=== PATIENT | male | born 1965 | race Caucasian/White ===

== ENCOUNTER 2016-09-27 17:16 | Observation (INO) | payer OTHER ==
[2016-09-27 17:27] VITALS: BMI 27.4
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
[2016-09-27 17:52] LABS: BASOPHILS % (AUTO) 0.2 % (0.2-1.0); EOSINOPHILS # (AUTO) 0.1 x10^3/uL (0.0-0.2); EOSINOPHILS % (AUTO) 1.6 % (0.9-2.9); HEMATOCRIT 38.6 % (42.0-54.0); HEMOGLOBIN 13.4 g/dL (13.5-18.0); LYMPHOCYTES # (AUTO) 1.9 X10^3/uL (1.3-2.9); LYMPHOCYTES % (AUTO) 26.5 % (21.0-51.0); MEAN CORPUSCULAR HEMOGLOBIN 33.6 pg (27.0-34.0); MEAN CORPUSCULAR HGB CONC 34.8 g/dL (33.0-35.0); MEAN CORPUSCULAR VOLUME 96.6 fL (80.0-100.0); MEAN PLATELET VOLUME 6.7 fL (7.4-11.0); MONOCYTES # (AUTO) 0.9 x10^3/uL (0.3-0.8); MONOCYTES % (AUTO) 12.6 % (0.0-13.0); NEUTROPHILS # (AUTO) 4.2 x10^3/uL (2.2-4.8); NEUTROPHILS % (AUTO) 59.1 % (42.0-75.0); PLATELET COUNT 156 X10^3/uL (150.0-450.0); RED CELL DISTRIBUTION WIDTH 12.6 % (11.6-16.5); WHITE BLOOD COUNT 7.1 X10^3/uL (3.6-10.0)
[2016-09-27 18:05] LABS: BLOOD UREA NITROGEN 6 mg/dL (7-18); CALCIUM 8.2 mg/dL (8.5-10.1); CARBON DIOXIDE 25.6 mmol/L (21-32); CHLORIDE 91 mmol/L (98-107); CREATININE 0.74 mg/dL (0.70-1.30); GLUCOSE 95 mg/dL (65-99); SODIUM 130 mmol/L (136-145); TROPONIN I < 0.02 ng/mL (0-1.5); eGFR BLACK RACES > 60 (>60); eGFR NON BLACK RACES > 60 (>60)
[2016-09-27 18:09] LABS: ALANINE AMINOTRANSFERASE 26 Units/L (12-78); ALBUMIN 4.2 g/dL (3.4-5.0); ALKALINE PHOSPHATASE 110 Units/L (46-116); ASPARTATE AMINO TRANSFERASE 26 Units/L (15-37); CKMB % 1.7 % (<4); CREATINE KINASE 152 Units/L (39-308); CREATINE KINASE MB 2.6 ng/mL (0-4.0); TOTAL PROTEIN 8.4 g/dL (6.4-8.2)
--- NOTE | 2016-09-27 18:16 | RAD ---
HISTORY: Hypoxia and cough Study: PA and lateral chest Comparison: July 22, 2016 Findings: The trachea is midline. The cardiac silhouette is normal. There is a endo coil in the proximal desc ending thoracic aorta.. The lungs are clear without focal infiltrate or effusion. The bony thorax shows plates and screws around the distal left clavicle for old fracture.. IMPRESSION: 1. No acute cardiopulmonary disease. Reported By:
[2016-09-27 18:24] LABS: D DIMER 501 ng/mL (0-400)
[2016-09-27] MEDS ORDERED: NS 500 ML IV 500 ML IV ONE ×2 (20:29→20:34)
[2016-09-27] MEDS ORDERED: NS 100 ML IV 100 ML IV ONE (20:37)
--- NOTE | 2016-09-27 21:38 | CT ---
CTA chest with contrast per pulmonary embolism protocol Indication: Shortness of breath Comparison: 05/05/2013 Technique: Multiple axial images of the chest were obtained from the thoracic inlet to the upper abd omen after the administration of IV contrast.Coronal and Sagittal MIP images were also provided. Radiation dose reduction techniques were performed utilizing adjustment for MA/kVP based on patient body size. Findings: No central or segmental pulmonary arterial filling defect is identified. There is normal caliber of the pulmonary artery without CT evidence or right heart strain. The heart size is within normal limits without pericardial effusion. The pulmonary artery calcified atherosclerotic disease is noted. The a stent is noted within the descending thoracic aorta . There are borderline enlarged prevascular, AP would and pretracheal lymph nodes. There is also a mildly en larged right hilar lymph node on axial image 52. There is diffuse peribronchial thickening with peribronchial consolidation and ground-glass opacitie s within the medial right middle lobe, right lower lobe, lingula and left lower lobe consistent mult i focal infectious infiltrates in the setting of bronchitis. Central airways remain clear. No pleura l effusion or pneumothorax. Visualized upper abdomen is unremarkable. There are multiple healed fracture deformities involving t he left sided ribs none of which appear acute. IMPRESSION: 1. No PTE identified. 2. Bronchitis with multi focal bronchopneumonia. 3. Borderline enlarged mediastinal and mildly enlarged right hilar lymph nodes are likely reactive t o the above described acute infectious process, correlation with followup chest CT can be performed as clinically warranted. 4. Multiple chronic fracture deformities of the left-sided ribs. Reported By:
[2016-09-27] MEDS ORDERED: ROCEPHIN VIAL 1 GM 1 GM in NS 50 ML IV + SPIKE MINIBAG* 50 ML IV ONE (21:50)
[2016-09-27] MEDS ORDERED: ROCEPHIN 1 GM IV PREMIX * OUT OF STOCK 50 ML IV ONE (21:57)
[2016-09-27] MEDS ORDERED: TUSSIONEX PENNKINETIC SUSP PO PRN (22:49)
[2016-09-27] MEDS ORDERED: SOLU-MEDROL 125 MG VIAL IVP ONE (22:51)
[2016-09-27] MEDS ORDERED: NS 1/2 1000 ML IV 1,000 ML IV SCH (23:00)
[2016-09-27] MEDS ORDERED: TYLENOL 325 MG TAB PO ONE ×2 (23:02→23:03)
[2016-09-27] MEDS: LEVAQUIN PREMIX IV 750 MG 750 MG/150 ML BAG IV SCH (23:11)
[2016-09-27] MEDS ORDERED: SOLU-MEDROL 125 MG VIAL ONE (23:15)
[2016-09-27] MEDS ORDERED: LEVAQUIN PREMIX IV 750 MG 750 MG/150 ML BAG IV ONE (23:15)
[2016-09-27] MEDS ORDERED: SALINE 3% 15 ML NEB TX ONE (23:33)
[2016-09-27] MEDS ORDERED: NORVASC TAB 5 MG PO SCH (23:45)
[2016-09-28] MEDS ORDERED: SALINE 3% 15 ML NEB TX NEB ONE
[2016-09-28] MEDS: DUONEB 0.5 MG/3 MG NEB SCH ×6 (00:42→21:16)
[2016-09-28] MEDS: NS 1000 ML 1,000 ML IV SCH (01:00)
[2016-09-28 06:19] LABS: BASOPHILS % (AUTO) 0.9 % (0.2-1.0); EOSINOPHILS % (AUTO) 0.1 % (0.9-2.9); HEMATOCRIT 37.3 % (42.0-54.0); HEMOGLOBIN 13.1 g/dL (13.5-18.0); LYMPHOCYTES # (AUTO) 0.7 X10^3/uL (1.3-2.9); LYMPHOCYTES % (AUTO) 13.7 % (21.0-51.0); MEAN CORPUSCULAR HEMOGLOBIN 33.6 pg (27.0-34.0); MEAN CORPUSCULAR VOLUME 95.9 fL (80.0-100.0); MEAN PLATELET VOLUME 7.2 fL (7.4-11.0); MONOCYTES # (AUTO) 0.1 x10^3/uL (0.3-0.8); MONOCYTES % (AUTO) 1.9 % (0.0-13.0); NEUTROPHILS # (AUTO) 4.4 x10^3/uL (2.2-4.8); NEUTROPHILS % (AUTO) 83.4 % (42.0-75.0); PLATELET COUNT 119 X10^3/uL (150.0-450.0); RED BLOOD COUNT 3.89 X10^6/uL (4.7-6.0); RED CELL DISTRIBUTION WIDTH 12.7 % (11.6-16.5); WHITE BLOOD COUNT 5.2 X10^3/uL (3.6-10.0)
[2016-09-28 06:24] LABS: ALANINE AMINOTRANSFERASE 21 Units/L (12-78); ALBUMIN 3.7 g/dL (3.4-5.0); ALKALINE PHOSPHATASE 99 Units/L (46-116); ASPARTATE AMINO TRANSFERASE 19 Units/L (15-37); BLOOD UREA NITROGEN 5 mg/dL (7-18); CALCIUM 8.5 mg/dL (8.5-10.1); CARBON DIOXIDE 23.7 mmol/L (21-32); CHLORIDE 100 mmol/L (98-107); COR NA(FOR HYPERGLY) 138 mmol/L (136-145); CREATININE 0.79 mg/dL (0.70-1.30); GLUCOSE 144 mg/dL (65-99); SODIUM 137 mmol/L (136-145); TOTAL PROTEIN 7.7 g/dL (6.4-8.2); eGFR BLACK RACES > 60 (>60); eGFR NON BLACK RACES > 60 (>60)
[2016-09-28] MEDS ORDERED: [UNRECOGNIZED DRUG - OTHER] PO PRN (08:29)
[2016-09-28] MEDS ORDERED: PATIENT'S HOME MEDICATION RESPIRATORY (Alprazolam [Xanax 1 Mg] 1 MG) PO SCH (09:00)
[2016-09-28] MEDS: SOLU-MEDROL 40 MG VIAL IVP SCH ×3 (09:14→21:20)
[2016-09-28] MEDS: ROBITUSSIN DM PO SCH ×4 (09:15→21:08)
[2016-09-28] MEDS: XANAX PO SCH ×2 (10:41→21:05)
[2016-09-28] MEDS: PERCOCET TAB 5/325 MG PO PRN ×2 (16:31→21:06)
[2016-09-28] MEDS ORDERED: [UNRECOGNIZED DRUG - OTHER] PO SCH (21:00)
[2016-09-28] MEDS ORDERED: INDERAL TAB 10 MG PO SCH ×2 (21:00)
[2016-09-28] MEDS ORDERED: ROCEPHIN VIAL 1 GM 1 GM in NS 50 ML IV + SPIKE MINIBAG* 50 ML IV SCH (21:00)
[2016-09-28] MEDS ORDERED: [UNRECOGNIZED DRUG - OTHER] PO SCH (21:00)
[2016-09-28] MEDS ORDERED: PREVACID PO SCH (21:00)
[2016-09-28] MEDS ORDERED: NORVASC TAB 5 MG PO SCH ×2 (21:00)
[2016-09-28] MEDS: LEVAQUIN PREMIX IV 750 MG 750 MG/150 ML BAG IV SCH (21:08)
[2016-09-29] MEDS: PERCOCET TAB 5/325 MG PO PRN
[2016-09-29] MEDS: DUONEB 0.5 MG/3 MG NEB SCH ×3 (00:44→08:29)
[2016-09-29] MEDS: NS 1000 ML 1,000 ML IV SCH ×2 (01:29→06:20)
[2016-09-29 06:12] LABS: ALANINE AMINOTRANSFERASE 21 Units/L (12-78); ALBUMIN 3.6 g/dL (3.4-5.0); ALKALINE PHOSPHATASE 93 Units/L (46-116); ASPARTATE AMINO TRANSFERASE 14 Units/L (15-37); BLOOD UREA NITROGEN 7 mg/dL (7-18); CALCIUM 9.2 mg/dL (8.5-10.1); CARBON DIOXIDE 27.1 mmol/L (21-32); CHLORIDE 103 mmol/L (98-107); COR NA(FOR HYPERGLY) 142 mmol/L (136-145); CREATININE 0.66 mg/dL (0.70-1.30); GLUCOSE 179 mg/dL (65-99); SODIUM 140 mmol/L (136-145); eGFR BLACK RACES > 60 (>60); eGFR NON BLACK RACES > 60 (>60)
[2016-09-29] MEDS: SOLU-MEDROL 40 MG VIAL IVP SCH (06:16)
[2016-09-29 06:17] LABS: BASOPHILS % (AUTO) 0 % (0.2-1.0); HEMATOCRIT 37.4 % (42.0-54.0); LYMPHOCYTES # (AUTO) 0.5 X10^3/uL (1.3-2.9); LYMPHOCYTES % (AUTO) 8.2 % (21.0-51.0); MEAN CORPUSCULAR HEMOGLOBIN 33.9 pg (27.0-34.0); MEAN CORPUSCULAR HGB CONC 34.9 g/dL (33.0-35.0); MEAN CORPUSCULAR VOLUME 97.2 fL (80.0-100.0); MEAN PLATELET VOLUME 7.6 fL (7.4-11.0); MONOCYTES # (AUTO) 0.3 x10^3/uL (0.3-0.8); NEUTROPHILS # (AUTO) 5.5 x10^3/uL (2.2-4.8); NEUTROPHILS % (AUTO) 87.8 % (42.0-75.0); PLATELET COUNT 134 X10^3/uL (150.0-450.0); RED BLOOD COUNT 3.85 X10^6/uL (4.7-6.0); RED CELL DISTRIBUTION WIDTH 12.7 % (11.6-16.5); WHITE BLOOD COUNT 6.2 X10^3/uL (3.6-10.0)
[2016-09-29] MEDS: ROBITUSSIN DM PO SCH (09:19)
[2016-09-29] MEDS: XANAX PO SCH (09:20)
--- NOTE | 2016-09-29 09:34 | RAD ---
HISTORY: Congestion and cough. Dyspnea. Single-view of the chest. Comparison: CT exam of the chest dated September 27, 2016. Findings: The trachea is midline. The cardiac silhouette is unremarkable. There are increased perihilar inte rstitial opacities seen, compatible with central bronchitis. The lungs are otherwise clear without f ocal infiltrate or effusion. The bony thorax is stable. IMPRESSION: Aortic stent seen in place. Radiographic findings compatible with central bronchitis. No lobar pneumonia or effusion seen. Bones are stable. Reported By:
[2016-09-29 12:53] VITALS: BP 157/94
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
== END 2016-09-29 12:45 | disposition home or self-care (01) ==
LOC: ER 17:18 → MED/SURG 22:47
PROVIDERS: ADMIT Internal Medicine; ATTEND Internal Medicine
DX: J18.0 Bronchopneumonia, unspecified organism (principal); J20.8 Acute bronchitis due to other specified organisms; J02.8 Acute pharyngitis due to other specified organisms; R06.02 Shortness of breath; I10 Essential (primary) hypertension; F41.8 Other specified anxiety disorders; R06.00 Dyspnea, unspecified; E87.1 Hypo-osmolality and hyponatremia; J98.01 Acute bronchospasm; K21.9 Gastro-esophageal reflux disease without esophagitis; D64.89 Other specified anemias
CPT/HCPCS: 36415; 71010; 71020; 71275; 80053; 82550; 82553; 84484; 85025; 85378; 87040; 87070; 87205; 87502; 87503; 87880; 93005; 94640; 94760; 96365; 96367; 96374; 96375; 99284; A4222; G0378; J0696; J1956; J2920; J2930; J7620

== ENCOUNTER 2016-10-02 11:35 | Inpatient (IN) | payer OTHER ==
[2016-10-02] MEDS ORDERED: TUSSIONEX PENNKINETIC SUSP PO PRN (15:01)
[2016-10-02] MEDS ORDERED: NS 1/2 1000 ML IV 1,000 ML IV ONE (15:19)
[2016-10-02] MEDS: SOLU-MEDROL 125 MG VIAL IVP SCH ×2 (15:28→21:16)
[2016-10-02] MEDS: LEVAQUIN PREMIX IV 750 MG 750 MG/150 ML BAG IV SCH (15:28)
[2016-10-02] MEDS: NS 1/2 1000 ML IV 1,000 ML IV SCH (15:29)
[2016-10-02] MEDS: ROBITUSSIN DM PO SCH ×2 (15:34→21:16)
[2016-10-02 15:52] LABS: BASOPHILS % (AUTO) 0 % (0.2-1.0); EOSINOPHILS # (AUTO) 0.1 x10^3/uL (0.0-0.2); EOSINOPHILS % (AUTO) 1.5 % (0.9-2.9); HEMATOCRIT 39.3 % (42.0-54.0); HEMOGLOBIN 13.7 g/dL (13.5-18.0); LYMPHOCYTES # (AUTO) 0.7 X10^3/uL (1.3-2.9); LYMPHOCYTES % (AUTO) 15.5 % (21.0-51.0); MEAN CORPUSCULAR HEMOGLOBIN 33.3 pg (27.0-34.0); MEAN CORPUSCULAR HGB CONC 34.8 g/dL (33.0-35.0); MEAN CORPUSCULAR VOLUME 95.9 fL (80.0-100.0); MEAN PLATELET VOLUME 6.8 fL (7.4-11.0); MONOCYTES # (AUTO) 0.4 x10^3/uL (0.3-0.8); MONOCYTES % (AUTO) 10.3 % (0.0-13.0); NEUTROPHILS # (AUTO) 3.1 x10^3/uL (2.2-4.8); NEUTROPHILS % (AUTO) 72.7 % (42.0-75.0); PLATELET COUNT 117 X10^3/uL (150.0-450.0); RED CELL DISTRIBUTION WIDTH 12.4 % (11.6-16.5); WHITE BLOOD COUNT 4.2 X10^3/uL (3.6-10.0)
[2016-10-02 15:56] LABS: ALANINE AMINOTRANSFERASE 19 Units/L (12-78); ALBUMIN 3.3 g/dL (3.4-5.0); ALKALINE PHOSPHATASE 80 Units/L (46-116); ASPARTATE AMINO TRANSFERASE 17 Units/L (15-37); BLOOD UREA NITROGEN 10 mg/dL (7-18); CALCIUM 8.3 mg/dL (8.5-10.1); CARBON DIOXIDE 29.8 mmol/L (21-32); CHLORIDE 93 mmol/L (98-107); COR CA(FOR HYPOALB) 8.9 mg/dL (8.5-10.1); GLUCOSE 97 mg/dL (65-99); SODIUM 132 mmol/L (136-145); TOTAL PROTEIN 7.8 g/dL (6.4-8.2); eGFR BLACK RACES > 60 (>60); eGFR NON BLACK RACES > 60 (>60)
[2016-10-02] MEDS ORDERED: K-RIDER 10 MEQ/NS 100 ML 10 MEQ/100 ML BAG IV PRN (16:04)
[2016-10-02] MEDS ORDERED: POTASSIUM CHLORIDE LIQ 20 MEQ UDC PO PRN (16:04)
[2016-10-02] MEDS ORDERED: K-LYTE EFFERVESCENT PO PRN (16:04)
[2016-10-02] MEDS ORDERED: K-DUR TAB 20 MEQ PO PRN (16:04)
[2016-10-02] MEDS: DUONEB 0.5 MG/3 MG NEB SCH ×2 (16:33→21:23)
[2016-10-02 17:56] VITALS: BMI 26.6
--- NOTE | 2016-10-02 18:00 | RAD ---
HISTORY: Cough and shortness of breath Study: PA and lateral chest Comparison: September 29, 2016 Findings: The trachea is midline. The cardiac silhouette is unremarkable. The lungs are clear without focal infiltrate or effusion. The bony thorax shows multiple old healed and deformed left upper lateral r ib fractures. There is an old fracture of the left clavicle with plates. There is a coil in the desc ending thoracic aorta.. IMPRESSION: 1. No acute cardiopulmonary disease. Reported By:
[2016-10-03] MEDS: DUONEB 0.5 MG/3 MG NEB SCH ×6 (01:07→20:39)
[2016-10-03 05:29] LABS: ALANINE AMINOTRANSFERASE 18 Units/L (12-78); ALBUMIN 3.1 g/dL (3.4-5.0); ALKALINE PHOSPHATASE 73 Units/L (46-116); ASPARTATE AMINO TRANSFERASE 16 Units/L (15-37); BLOOD UREA NITROGEN 9 mg/dL (7-18); CALCIUM 8.7 mg/dL (8.5-10.1); CARBON DIOXIDE 28.1 mmol/L (21-32); CHLORIDE 99 mmol/L (98-107); COR CA(FOR HYPOALB) 9.4 mg/dL (8.5-10.1); COR NA(FOR HYPERGLY) 137 mmol/L (136-145); CREATININE 0.79 mg/dL (0.70-1.30); GLUCOSE 182 mg/dL (65-99); SODIUM 135 mmol/L (136-145); TOTAL PROTEIN 7.6 g/dL (6.4-8.2); eGFR BLACK RACES > 60 (>60); eGFR NON BLACK RACES > 60 (>60)
[2016-10-03 05:45] LABS: BASOPHILS % (AUTO) 0.2 % (0.2-1.0); EOSINOPHILS % (AUTO) 0.1 % (0.9-2.9); HEMATOCRIT 37.9 % (42.0-54.0); LYMPHOCYTES # (AUTO) 0.3 X10^3/uL (1.3-2.9); LYMPHOCYTES % (AUTO) 16.9 % (21.0-51.0); MEAN CORPUSCULAR HEMOGLOBIN 33.3 pg (27.0-34.0); MEAN CORPUSCULAR HGB CONC 34.4 g/dL (33.0-35.0); MEAN CORPUSCULAR VOLUME 96.8 fL (80.0-100.0); MEAN PLATELET VOLUME 7.3 fL (7.4-11.0); MONOCYTES # (AUTO) 0.1 x10^3/uL (0.3-0.8); MONOCYTES % (AUTO) 4.4 % (0.0-13.0); NEUTROPHILS # (AUTO) 1.4 x10^3/uL (2.2-4.8); NEUTROPHILS % (AUTO) 78.4 % (42.0-75.0); PLATELET COUNT 118 X10^3/uL (150.0-450.0); RED BLOOD COUNT 3.92 X10^6/uL (4.7-6.0); RED CELL DISTRIBUTION WIDTH 12.6 % (11.6-16.5)
[2016-10-03] MEDS ORDERED: NS 1/2 1000 ML IV 1,000 ML IV ONE ×2 (05:45→20:26)
[2016-10-03 05:48] LABS: WHITE BLOOD COUNT 1.8 X10^3/uL (3.6-10.0)
[2016-10-03] MEDS: NS 1/2 1000 ML IV 1,000 ML IV SCH ×2 (06:19→20:56)
[2016-10-03] MEDS: SOLU-MEDROL 125 MG VIAL IVP SCH ×3 (06:20→22:50)
[2016-10-03] MEDS ORDERED: [UNRECOGNIZED DRUG - OTHER] PO PRN (08:04)
[2016-10-03] MEDS ORDERED: PATIENT'S HOME MEDICATION RESPIRATORY (Alprazolam [Xanax 1 Mg] 1 MG) PO SCH (09:00)
[2016-10-03] MEDS: XANAX PO SCH ×2 (10:00→20:58)
[2016-10-03] MEDS: LEVAQUIN PREMIX IV 750 MG 750 MG/150 ML BAG IV SCH (10:00)
[2016-10-03] MEDS: ROBITUSSIN DM PO SCH ×4 (10:00→20:57)
--- NOTE | 2016-10-03 11:15 | DR.UPDATE ---
H&P Update History and Physical Update: HISTORY AND PHYSICAL UPDATE FOR ADMISSION 10/02/16 MR. DEL ANGEL'S H&P WAS COMPLETED WITH HIS PRIOR HOSPITALIZATION ON 09/27/16. PATIENT WAS DISCHARGED FROM OUR HOSPITAL ON 09/29/16 WITH BRONCHOPNEUMONIA. PATIENT FOLLOWED UP IN OUR OFFICE TODAY WITH COMPLAINTS OF WORSENING SYMPTOMS. HE REPORTS COUGH, CONGESTION, AND SHORTNESS OF BREATH. HE IS NOTED WITH MILD RESPIRATORY DISTRESS WITH ACCESSORY MUSCLE USE AT REST. AT BEDSIDE AND REPORTS PATIENT HAS BEEN COMPLIANT WITH ANTIBIOTICS AND NEB TREATMENTS SINCE DISCHARGE. HE ALSO REPORTS CHILLS AND FEVER AT HOME. ON AUSCULTATION, LUNGS ARE NOTED WITH COARSE WHEEZES THROUGHOUT. COUGH IS MOIST AND PRODUCTIVE AT TIMES. WE WILL ADMIT PATIENT TO HOSPITAL AND START PNEUMONIA PROTOCOL. WE WILL START PATIENT ON IV LEVAQUIN, DUONEBS, ROBITUSSIN, TUSSIONEX, AND SUPPLEMENTAL OXYGEN. WE WILL CONTINUE TO MONITOR AND FOLLOW UP IN AM WITH LABS.
--- NOTE | 2016-10-03 14:45 | PCM.PROG ---
Progress Note - Progress Note for Day of Date: 10/03/16 - Subjective Subjective: PATIENT CONTINUES MOIST, NON-PRODUCTIVE COUGH AND IS PERSISTENT. LUNGS NOTED WITH COARSE WHEEZES AND RHONCHI ON AUSCULTATION. PATIENT CONTINUES WITH SHORTNESS OF BREATH AT REST. HE IS NOTED WITH WORSENING SHORTNESS OF BREATH WITH SPEAKING. CBC WNL EXCEPT: WBC 1.8, H/H 13.0/37.9. CMP WNL EXCEPT: SODIUM 135, GLUCOSE 182, ALBUMIN 3.1. WE ARE AWAITING BLOOD AND SPUTUM CULTURES. WE WILL START TUSSIONEX SCHEDULED BID, START SYMBICORT, SMARTVEST , FLUTTER VALVE, AND OBTAIN AN ECHO. WE WILL FOLLOW UP IN AM WITH LABS AND CHEST XRAY. - Past Medical Family Social History Past Med/Fam/Surg Hx: No changes since H&P Allergies: Allergies antidepressants Allergy (Uncoded 07/22/16 18:32) - Review of Systems ROS: No change since H&P - Vital Signs and I&O's Vital Signs: Temperature 97.8 F Pulse Rate [Right Brachial] 80 Pulse Rate 107 Respiratory Rate 20 Blood Pressure [Right Arm] 108/66 Blood Pressure 157/94 O2 Sat by Pulse Oximetry 98 Intake and Output: Intake & Output 10/01/16 10/02/16 10/03/16 10/04/16 11:59 11:59 11:59 11:59 Intake Total 540 Output Total 0 Balance 540 - Physical Exam Oriented: Normal, Time, Person, Place Eyes: Normal. negative: Blurred Vision, Diplopia, Discharge, Pain, Redness, Photophobia Ear: Normal. negative: Swelling, Ecchymosis, Hemotypanum, Abrasion, Laceration Nose: Normal. negative: Injected, Discharge, Blood Throat: Red, Dry. negative: Tonsillar Hypertrophy, Exudate Respiratory: Generalized, Wheezes, Rhonchi Cardiovascular: Normal. negative: Murmur, Edema : Normal. negative: Dysuria, Hematuria, Frequency, Discharge, Testicular Pain Auscultation: Bowel Sounds: Normal. negative: Bruit Palpation: Normal. negative: Spleen Enlarged, Liver Enlarged, Mass Pulsatile Tenderness: Normal. negative: Rebound, Guarding, Rigidity Skin: Normal. negative: Diaphoresis, Wound, Bruising, Ecchymosis Musculoskeletal: Normal Psychiatric: Normal Mood Description: Calm, Appropriate Affect: Normal Speech Pattern: Clear, Appropriate - Laboratory and Diagnostics Result Diagrams: 10/03/16 03:50 10/03/16 03:50 Labs: 10/02/16 17:11 Sputum - Expectorated Sputum Sputum Culture - Preliminary 10/02/16 17:11 Sputum - Expectorated Sputum - Final Laboratory WBC 1.8 X10^3/uL (3.6-10.0) L* 10/03/16 03:50 RBC 3.92 X10^6/uL (4.7-6.0) L 10/03/16 03:50 Hgb 13.0 g/dL (13.5-18.0) L 10/03/16 03:50 Hct 37.9 % (42.0-54.0) L 10/03/16 03:50 MCV 96.8 fL (80.0-100.0) 10/03/16 03:50 MCH 33.3 pg (27.0-34.0) 10/03/16 03:50 MCHC 34.4 g/dL (33.0-35.0) 10/03/16 03:50 RDW 12.6 % (11.6-16.5) 10/03/16 03:50 Plt Count 118 X10^3/uL (150.0-450.0) L 10/03/16 03:50 MPV 7.3 fL (7.4-11.0) L 10/03/16 03:50 Neut % 78.4 % (42.0-75.0) H 10/03/16 03:50 Lymph % 16.9 % (21.0-51.0) L 10/03/16 03:50 [place] % 4.4 % (0.0-13.0) 10/03/16 03:50 Eos % 0.1 % (0.9-2.9) L 10/03/16 03:50 Baso % 0.2 % (0.2-1.0) 10/03/16 03:50 Neut # 1.4 x10^3/uL (2.2-4.8) L 10/03/16 03:50 Lymph # 0.3 X10^3/uL (1.3-2.9) L 10/03/16 03:50 [place] # 0.1 x10^3/uL (0.3-0.8) L 10/03/16 03:50 Eos # 0.0 x10^3/uL (0.0-0.2) 10/03/16 03:50 Baso # 0.0 X10^3/uL (0.0-0.1) 10/03/16 03:50 Absolute Nucleated RBC 0.9 /100WBC 10/03/16 03:50 Sodium 135 mmol/L (136-145) L 10/03/16 03:50 Corrected Sodium 137 mmol/L (136-145) 10/03/16 03:50 Potassium 3.6 mmol/L (3.5-5.1) 10/03/16 03:50 Chloride 99 mmol/L (98-107) 10/03/16 03:50 Carbon Dioxide 28.1 mmol/L (21-32) 10/03/16 03:50 BUN 9 mg/dL (7-18) 10/03/16 03:50 Creatinine 0.79 mg/dL (0.70-1.30) 10/03/16 03:50 Est GFR (MDRD) Af Amer > 60 (>60) 10/03/16 03:50 Est GFR (MDRD) Non-Af > 60 (>60) 10/03/16 03:50 Glucose 182 mg/dL (65-99) H 10/03/16 03:50 Calcium 8.7 mg/dL (8.5-10.1) 10/03/16 03:50 Corrected Calcium 9.4 mg/dL (8.5-10.1) 10/03/16 03:50 Total Bilirubin 0.30 mg/dL (0.2-1.0) 10/03/16 03:50 AST 16 Units/L (15-37) 10/03/16 03:50 ALT 18 Units/L (12-78) 10/03/16 03:50 Alkaline Phosphatase 73 Units/L (46-116) 10/03/16 03:50 Total Protein 7.6 g/dL (6.4-8.2) 10/03/16 03:50 Albumin 3.1 g/dL (3.4-5.0) L 10/03/16 03:50 Globulin 4.5 g/dL (2.5-4.5) 10/03/16 03:50 Albumin/Globulin Ratio 0.7 Ratio (1.1-2.1) L 10/03/16 03:50 - Plan (1) Bronchopneumonia Status: Acute Plan: START SMARTVEST, FLUTTER VALVE, SYMBICORT, CHANGE TUSSIONEX TO SCHEDULED BID, CONTINUE IV LEVAQUIN, DUONEBS, ROBITUSSIN, SUPPLEMENTAL OXYGEN, MONITOR LABS AND CHEST XRAY. (2) Hypokalemia Status: Acute Plan: CONTINUE POTASSIUM PROTOCOL, MONITOR LABS. (3) Hyponatremia Status: Acute Plan: CONTINUE IV FLUIDS, MONITOR. (4) Respiratory distress Status: Acute Plan: ABOVE. (5) Anxiety Status: Chronic (6) Essential hypertension Status: Chronic (7) Gastroesophageal reflux disease Status: Chronic
[2016-10-03] MEDS: TUSSIONEX PENNKINETIC SUSP PO SCH ×2 (14:53→22:50)
[2016-10-03] MEDS: SYMBICORT INH 160/4.5 mcg IN SCH (20:46)
[2016-10-03] MEDS: PERCOCET TAB 5/325 MG PO PRN (20:59)
[2016-10-03] MEDS ORDERED: NORVASC TAB 5 MG PO SCH (21:00)
[2016-10-03] MEDS ORDERED: PREVACID PO SCH (21:00)
[2016-10-03] MEDS ORDERED: INDERAL TAB 10 MG PO SCH (21:00)
[2016-10-04] MEDS: DUONEB 0.5 MG/3 MG NEB SCH ×4 (01:24→12:10)
[2016-10-04] MEDS: SOLU-MEDROL 125 MG VIAL IVP SCH ×2 (06:02→14:36)
[2016-10-04] MEDS: PERCOCET TAB 5/325 MG PO PRN (06:03)
[2016-10-04 06:18] LABS: ALANINE AMINOTRANSFERASE 24 Units/L (12-78); ALBUMIN 2.9 g/dL (3.4-5.0); ALKALINE PHOSPHATASE 68 Units/L (46-116); ASPARTATE AMINO TRANSFERASE 17 Units/L (15-37); BLOOD UREA NITROGEN 12 mg/dL (7-18); CALCIUM 8.7 mg/dL (8.5-10.1); CARBON DIOXIDE 28.4 mmol/L (21-32); CHLORIDE 103 mmol/L (98-107); COR CA(FOR HYPOALB) 9.6 mg/dL (8.5-10.1); COR NA(FOR HYPERGLY) 141 mmol/L (136-145); CREATININE 0.74 mg/dL (0.70-1.30); GLUCOSE 180 mg/dL (65-99); SODIUM 139 mmol/L (136-145); eGFR BLACK RACES > 60 (>60); eGFR NON BLACK RACES > 60 (>60)
[2016-10-04 06:22] LABS: BASOPHILS % (AUTO) 0.1 % (0.2-1.0); HEMATOCRIT 36.8 % (42.0-54.0); HEMOGLOBIN 12.7 g/dL (13.5-18.0); LYMPHOCYTES # (AUTO) 0.5 X10^3/uL (1.3-2.9); LYMPHOCYTES % (AUTO) 14.3 % (21.0-51.0); MEAN CORPUSCULAR HEMOGLOBIN 33.2 pg (27.0-34.0); MEAN CORPUSCULAR HGB CONC 34.5 g/dL (33.0-35.0); MEAN CORPUSCULAR VOLUME 96.2 fL (80.0-100.0); MEAN PLATELET VOLUME 7.5 fL (7.4-11.0); MONOCYTES # (AUTO) 0.2 x10^3/uL (0.3-0.8); MONOCYTES % (AUTO) 5.9 % (0.0-13.0); NEUTROPHILS # (AUTO) 2.6 x10^3/uL (2.2-4.8); NEUTROPHILS % (AUTO) 79.7 % (42.0-75.0); PLATELET COUNT 135 X10^3/uL (150.0-450.0); RED BLOOD COUNT 3.83 X10^6/uL (4.7-6.0); RED CELL DISTRIBUTION WIDTH 12.4 % (11.6-16.5); WHITE BLOOD COUNT 3.2 X10^3/uL (3.6-10.0)
--- NOTE | 2016-10-04 08:20 | RAD ---
Examination: Chest x-ray. Clinical History: Pneumonia, cough and congestion. Technique: A single portable AP view of the chest was obtained. Comparison: 10/02/2016. Findings: An endovascular stent is seen associated with the descending portion of the thoracic aorta, unchange d from the prior examination. The lungs are hypoventilated, precluding evaluation of the heart size. No pneumothorax or pleural effusion is noted. No pulmonary opacity is noted. There is an old healed fracture deformity of the distal diaphysis of the left clavicle , internally fixated with 2 metallic plates and multiple screws. There are postsurgical changes from fusion surge ry which are incompletely visualized in the cervical spine. Multiple old healed left-sided rib fract ures are noted, with associated pleural thickening. Degenerative changes are noted in the spine. No acute osseous abnormality is noted. Impression: 1. Hypoventilated lungs. Reported By:
[2016-10-04] MEDS: SYMBICORT INH 160/4.5 mcg IN SCH (08:40)
[2016-10-04] MEDS: LEVAQUIN PREMIX IV 750 MG 750 MG/150 ML BAG IV SCH (09:32)
[2016-10-04] MEDS: XANAX PO SCH (09:33)
[2016-10-04] MEDS: ROBITUSSIN DM PO SCH ×2 (09:33→14:12)
[2016-10-04] MEDS ORDERED: SOLU-MEDROL 125 MG VIAL IVP ONE ×2 (09:39→15:00)
[2016-10-04] MEDS: TUSSIONEX PENNKINETIC SUSP PO SCH (11:48)
[2016-10-04 14:35] VITALS: BP 139/65
== END 2016-10-04 14:15 | disposition home or self-care (01) | DRG 195 ==
LOC: MED/SURG 11:35
PROVIDERS: ADMIT Internal Medicine; ATTEND Internal Medicine
DX: J18.0 Bronchopneumonia, unspecified organism (principal); R06.02 Shortness of breath; R06.09 Other forms of dyspnea; E87.6 Hypokalemia; F41.8 Other specified anxiety disorders; I10 Essential (primary) hypertension; K21.9 Gastro-esophageal reflux disease without esophagitis; R26.89 Other abnormalities of gait and mobility
CPT/HCPCS: 36415; 71010; 71020; 80053; 84132; 85025; 87040; 87070; 87205; 93306; 94640; 94667; 94668; 94760; A4222; J1956; J2930; J7620

== ENCOUNTER 2017-05-20 18:54 | Emergency (ER) | payer OTHER ==
[2017-05-20 19:57] VITALS: BMI 25.8
--- NOTE | 2017-05-20 20:44 | RAD ---
HIP RADIOGRAPHS CLINICAL HISTORY: 52-year-old male status post fall with hematoma at the right hip. COMPARISON: None. FINDINGS: Three views of the right hip demonstrate prior ORIF of right femoral neck and femoral shaft fracture with helical locking screws, IM nail and cerclage wire in place. There is significant heter otopic ossification about the fracture sites. Femoral heads are rounded and well seated within the ac etabulum bilaterally. Osseous structures are intact without fracture or malalignment. There is no efrain dence of hardware failure. IMPRESSION: No acute fracture or malalignment about the right hip with well healed chronic fractures of the right femoral neck and femur with orthopedic hardware intact. Reported By:
--- NOTE | 2017-05-20 20:47 | RAD ---
TIBIA/FIBULA RADIOGRAPHS CLINICAL HISTORY: 52-year-old male status post fall with laceration to the anglin. COMPARISON: None. FINDINGS: 3 views of the left tibia and fibula were obtained. These demonstrate no acute fracture or malalignment. The ankle and knee articulations are congruent on provided views. The mineralization is maintained. There is no aggressive bone lesion or abnormal periosteal reaction. There is no radiop aque foreign body, soft tissue calcification or gas. IMPRESSION: No evidence of acute fracture or osseous abnormality on left tibia and fibula radiographs. Reported By:
--- NOTE | 2017-05-20 21:58 | DR.GENAD ---
HPI - PCP Primary Care Physician: trudi - Complaint/Symptoms Chief Complaint Doctors Comments: he presents with right flank pain and a laceration to his left anglin. 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 This happened earlier this afternoon. There was no LOC. Chief Complaint:: pt fell in a hole has laceration to lt anglin abd large hematoma to the rt hip abrasion to rt elbow - Nurses notes reviewed Nurses Notes Review: Yes - Source History Provided: Patient - Mode of Arrival Mode of Arrival: Ambulatory - Timing Onset of Chief Complaint: 05/20/17 Came on: Suddenly - Modifying Factors Worsens:: none Improves:: none PMH - PMH Past Medical History: Yes Past Medical History: Anxiety, Hypertension Past Surgical History: Yes Surgical History: CABG/Valve Surgery, Ortho Surgery, Other Past Surgical History Comment: rt leg - Family History History of Family Medical Conditions: Yes Family Medical History: Cancer, Hypertension - Social History Alcohol Use: None Do you use any recreational Drugs:: No Lives With: Family Lives Where: Home - infectious screening In the last 2 months have you had wt loss of >10#?: NO Have you had fever, night sweats or hemotysis?: No Have you traveled outside the country in the last 6 months?: No Isolation: Standard ROS - Review of Systems Constitutional: No Symptoms Reported Eyes: No Symptoms Reported ENTM: No Symptoms Reported Respiratoy: No Symptoms Reported Cardiovascular: No Symptoms Reported Gastrointestinal/Abdominal: No Symptoms Reported Genitourinary: No Symptoms Reported Neurological: No Symptoms Reported Musculoskeletal: Other (right flank pain) Integumentary: Bruises (right flank), Other (cut to left anglin) Hematologic/Lymphatic: No Symptoms Reported Endocrine: No Symptoms Reported Psychiatric: No Symptoms Reported All Other Systems: Reviewed and Negative PE - Vital Signs Vitals: Temperature 97.8 F Pulse Rate 84 Respiratory Rate 18 Blood Pressure [] 139/65 Blood Pressure 130/89 O2 Sat by Pulse Oximetry 97 - General Limitations: No Limitations General Appearance: Alert, In No Apparent Distress - Head Head Exam: Normal Inspection - Eyes Eye exam: Normal Appearance - ENT ENT Exam: Normal Exam - Neck Neck Exam: Normal Inspection - Chest Chest Inspection: Normal Inspection - Respiratory Respiratory Exam: Normal Lung Sounds Bilat - Cardiovascular Cardiovascular Exam: Regular Rate, Normal Rhythm - Abdominal Exam Abdominal Exam: Normal Inspection, Normal Bowel Sounds, Soft Abdominal Tenderness: Other (rt. flank) - Extremities Extremities Exam: Tenderness (at left mid anglin) - Back Back Exam: Normal Inspection, (R) CVA Tenderness - Neurologic Neurological Exam: Alert, Oriented X3, CN II-XII Intact - Psychiatric Psychiatric Exam: Normal Affect, Normal Mood - Skin Skin Exam: Warm, Dry, Normal Color, Other (thereis laceration at left mid anglin about 3 cm) Course - Education/Counseling Education/Counseling: Patient, Family Educated On: Treatment, Diagnosis, Needs for Follow Up ROR - Labs Reviewed Result Diagrams: 05/20/17 22: Laboratory: WBC 5.5 X10^3/uL (3.6-10.0) 05/20/17 22: RBC 4.19 X10^6/uL (4.7-6.0) L 05/20/17 22: Hgb 14.5 g/dL (13.5-18.0) 05/20/17: Hct 40.8 % (42.0-54.0) L 05/20/17: MCV 97.5 fL (80.0-100.0) 05/20/17 22: MCH 34.5 pg (27.0-34.0) H 05/20/17 22: MCHC 35.4 g/dL (33.0-35.0) H 05/20/17: RDW 13.5 % (11.6-16.5) 05/20/17 22: Plt Count 149 X10^3/uL (150.0-450.0) L 05/20/17: MPV 6.5 fL (7.4-11.0) L 05/20/17 22: Neut % 62.6 % (42.0-75.0) 05/20/17: Lymph % 25.5 % (21.0-51.0) 05/20/17: [place] % 9.1 % (0.0-13.0) 05/20/17 22: Eos % 2.4 % (0.9-2.9) 05/20/17 22: Baso % 0.4 % (0.2-1.0) 05/20/17: Neut # 3.5 x10^3/uL (2.2-4.8) 05/20/17 22:30 Lymph # 1.4 X10^3/uL (1.3-2.9) 05/20/17 22:30 [place] # 0.5 x10^3/uL (0.3-0.8) 05/20/17 22:30 Eos # 0.1 x10^3/uL (0.0-0.2) 05/20/17 22:30 Baso # 0.0 X10^3/uL (0.0-0.1) 05/20/17 22:30 Absolute Nucleated RBC 0.0 /100WBC 05/20/17 22:30 - XRAY XRAY Interpreted by: Radiologist (Lt. tib./fib: No fracture; Rt. Hip: no acute fx or malalignment about the rt. hip with well healed chronic fxs. of the right femoral neck and femur with orthopedic hardware intact. Abd./Pelvis CT Scan: Moderate STS and contussion within the inferior lateral abdominal wallwithout fracture or the adjacent right ilium or localizing fluid collection. ) Procedures - Laceration/Wound Repair Left Leg Wound Length (cm): 3 Wound's Depth, Shape: Superficial Wound Explored: clean Irrigated w/ Saline (ccs): 3 Betadine Prep?: Yes Anesthesia: 1% Lidocaine Volume Anesthetic (ccs): 3 Wound Repaired With: sutures Suture Size/Type: 3:0 Number of Sutures: 2 Layer Closure?: No Splint Applied?: No - Diagnosis Discharge Problem: Laceration, Contusion, Fall - Discharge Plan Condition: Stable - Follow ups/Referrals Follow ups/Referrals: Escobar Alonzo [Primary Care Provider] - 3 days - Instructions
[2017-05-20] MEDS ORDERED: XYLOCAINE 1 % (PLAIN) ONE (22:10)
[2017-05-20] MEDS ORDERED: STERILE WATER IRRIGATION IR ONE (22:10)
[2017-05-20 22:37] LABS: BASOPHILS % (AUTO) 0.4 % (0.2-1.0); EOSINOPHILS # (AUTO) 0.1 x10^3/uL (0.0-0.2); EOSINOPHILS % (AUTO) 2.4 % (0.9-2.9); HEMATOCRIT 40.8 % (42.0-54.0); HEMOGLOBIN 14.5 g/dL (13.5-18.0); LYMPHOCYTES # (AUTO) 1.4 X10^3/uL (1.3-2.9); LYMPHOCYTES % (AUTO) 25.5 % (21.0-51.0); MEAN CORPUSCULAR HEMOGLOBIN 34.5 pg (27.0-34.0); MEAN CORPUSCULAR HGB CONC 35.4 g/dL (33.0-35.0); MEAN CORPUSCULAR VOLUME 97.5 fL (80.0-100.0); MEAN PLATELET VOLUME 6.5 fL (7.4-11.0); MONOCYTES # (AUTO) 0.5 x10^3/uL (0.3-0.8); MONOCYTES % (AUTO) 9.1 % (0.0-13.0); NEUTROPHILS # (AUTO) 3.5 x10^3/uL (2.2-4.8); NEUTROPHILS % (AUTO) 62.6 % (42.0-75.0); PLATELET COUNT 149 X10^3/uL (150.0-450.0); RED BLOOD COUNT 4.19 X10^6/uL (4.7-6.0); RED CELL DISTRIBUTION WIDTH 13.5 % (11.6-16.5); WHITE BLOOD COUNT 5.5 X10^3/uL (3.6-10.0)
--- NOTE | 2017-05-20 22:52 | CT ---
CT abdomen and pelvis without contrast Indication: Right flank pain with recent fall and bruising Comparison: None available Technique: Multiple axial images of the abdomen and pelvis were obtained from the lung bases to the pubic symphy sis without the administration of IV contrast. Findings: The lung bases demonstrate increased peribronchial thickening within the right middle lobe, lingula a nd bilateral lower lobes consistent with acute bronchitis and/or aspiration. No displaced rib fractur e identified. Moderate hepatic steatosis without focal hepatic lesion identified. Gallbladder is dist ended without evidence of cholelithiasis or pericholecystic fluid. The bile ducts, spleen, pancreas a nd adrenal glands are normal. Neither kidney demonstrates evidence of nephrolithiasis, hydronephrosis or mass. Upper GI tract without evidence of mass or obstruction. There is moderate hematoma within t he right lateral lower anterior abdominal wall no adjacent right iliac crest fracture. Abdominal aort a is normal in caliber. A stent is noted within the inferior most aspect of the descending thoracic a anjelica. Urinary bladder is normal. Prostate gland is normal. The rectum and colon are unremarkable. The appendix is not well visualized. No pelvic free fluid. Previously internally fixated proximal right femur with heterotopic calcification adjacent to the right greater trochanter. 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 Impression: 1.Moderate soft tissue swelling and contusion within the anterolateral aspect of the inferior right a bdominal wall without fracture of the adjacent right ilium or localizing fluid collection. 2. Central peribronchial thickening within the lingula, right middle lobe and bilateral lower lobes c onsistent with acute bronchitis and/or aspiration. 3. Hepatic steatosis. 4. Refer to above for other incidental findings. Reported By:
[2017-05-20] MEDS ORDERED: ADACEL TDaP IM ONE ×2 (23:30→23:34)
[2017-05-20 23:47] VITALS: BP 124/82
== END 2017-05-20 23:47 | disposition home or self-care (01) ==
LOC: ER 18:54
PROC: 0YQJ0ZZ Repair Left Lower Leg, Open Approach (ICD-10-PCS; principal; 2017-05-20)
DX: S81.812A Laceration without foreign body, left lower leg, initial encounter (principal); S80.12XA Contusion of left lower leg, initial encounter; W17.2XXA Fall into hole, initial encounter; Y92.9 Unspecified place or not applicable
CPT/HCPCS: 12002; 36415; 73501; 73590; 74176; 85025; 99282; 99283; A4217; J2001

== ENCOUNTER 2018-04-30 10:44 | Inpatient (IN) ==
[2018-04-30 13:22] LABS: HEMOGLOBIN 11.1 g/dL (13.5-18.0); MEAN CORPUSCULAR HEMOGLOBIN 36.5 pg (27.0-34.0)
[2018-04-30 13:32] LABS: BASOPHILS % (AUTO) 0 % (0.2-1.0); EOSINOPHILS % (AUTO) 0.5 % (0.9-2.9); HEMATOCRIT 32.6 % (42.0-54.0); LYMPHOCYTES # (AUTO) 0.9 X10^3/uL (1.3-2.9); LYMPHOCYTES % (AUTO) 29.4 % (21.0-51.0); MEAN CORPUSCULAR HGB CONC 34.1 g/dL (33.0-35.0); MEAN PLATELET VOLUME 9.1 fL (7.4-11.0); MONOCYTES # (AUTO) 0.7 x10^3/uL (0.3-0.8); MONOCYTES % (AUTO) 22.1 % (0.0-13.0); NEUTROPHILS # (AUTO) 1.4 x10^3/uL (2.2-4.8); PLATELET COUNT 104 X10^3/uL (150.0-450.0); RED BLOOD COUNT 3.05 X10^6/uL (4.7-6.0); RED CELL DISTRIBUTION WIDTH 18.7 % (11.6-16.5)
[2018-04-30 13:48] LABS: ALANINE AMINOTRANSFERASE 79 Units/L (12-78); ALBUMIN 2.4 g/dL (3.4-5.0); ALKALINE PHOSPHATASE 313 Units/L (46-116); ASPARTATE AMINO TRANSFERASE 120 Units/L (15-37); BLOOD UREA NITROGEN 8 mg/dL (7-18); CHLORIDE 101 mmol/L (98-107); CKMB % 3.1 % (<4); COR CA(FOR HYPOALB) 9.3 mg/dL (8.5-10.1); COR NA(FOR HYPERGLY) 136 mmol/L (136-145); CREATINE KINASE 32 Units/L (39-308); CREATINE KINASE MB < 1.0 ng/mL (0-4.0); CREATININE 0.89 mg/dL (0.70-1.30); SODIUM 135 mmol/L (136-145); TOTAL PROTEIN 7.1 g/dL (6.4-8.2); TROPONIN I < 0.02 ng/mL (0-1.5); eGFR NON BLACK RACES > 60 (>60)
[2018-04-30 14:03] LABS: BILIRUBIN,URINE 1+ (NEGATIVE); BLOOD/HEMOGLOBIN,URINE NEGATIVE (NEGATIVE); GLUCOSE, URINE NEGATIVE (NEGATIVE); KETONES,URINE NEGATIVE (NEGATIVE); LEUKOCYTE ESTERASE ,URINE 1+ (NEGATIVE); NITRITES,URINE NEGATIVE (NEGATIVE); PROTEIN,URINE 1+ (NEGATIVE); UROBILINOGEN,URINE 3+ (NORMAL)
[2018-04-30 14:13] LABS: APPEARANCE,URINE SLIGHTLY HAZY (CLEAR); COLOR,URINE AMBER (YELLOW)
[2018-04-30 14:14] LABS: BACTERIA,URINE TRACE /HPF (NEGATIVE); RBC,URINE 0-2 /HPF (NONE SEEN); SQUAMOUS EPITHELIAL CELL,UR RARE /HPF (NEGATIVE)
[2018-04-30 14:32] LABS: PLATELET MORPHOLOGY COMMENT NORMAL (NORMAL)
[2018-04-30 14:43] VITALS: BMI 27.3
--- NOTE | 2018-04-30 15:39 | RAD ---
HISTORY: Shortness of breath Study: Single view chest Comparison: 10/04/2016 Findings: Single portable view is submitted. There is a stent within the thoracic aorta. No infiltrate, effusion or pneumothorax identified. The cardiac and mediastinal contours are within normal limits. There are postsurgical changes of distal left clavicle chronic left lateral rib deformities. IMPRESSION: 1. No acute cardiopulmonary abnormality. Reported By:
[2018-04-30] MEDS: NS 1/2 + KCL 20 MEQ/L 1,000 ML IV SCH (15:44)
--- NOTE | 2018-04-30 16:05 | CT ---
HISTORY: Shortness of breath Study: CTA chest PE protocol Comparison: None Technique: Multiple axial images of the chest were obtained from the thoracic inlet to the upper abdomen after the administration of IV contrast. Maximum intensity projection images were obtained in the coronal and sagittal planes as well. Findings: No filling defects are identified within the central pulmonary arteries to suggest pulmonary emboli. However, the pulmonary arterial branches distal to the 2nd order branches cannot be adequately assessed due to suboptimal opacification. If concern for acute pulmonary embolus persists, correlation with nuclear medicine ventilation and perfusion study would be beneficial. Vascular stent is present within the descending thoracic aorta and aortic arch. The heart is nonenlarged. There is no pericardial effusion. There is no mediastinal or hilar lymphadenopathy. There is no acute infiltrate, consolidation, or pleural effusion. Scattered patchy ground-glass opacities likely reflect mild hypoventilatory changes. There is no suspicious pulmonary nodule or mass. Evaluation of the bony structures demonstrates multiple chronic left rib fractures. Multilevel Schmorl's nodes are noted within the thoracic spine. The visualized portions of the upper abdomen are grossly unremarkable. IMPRESSION: 1. No evidence of central pulmonary embolus. However, the pulmonary arterial branches distal to the 2nd order branches cannot be adequately assessed due to suboptimal opacification. If concern for acute pulmonary embolus persists, correlation nuclear medicine ventilation perfusion study would be beneficial. Reported By:
[2018-04-30 19:23] LABS: CKMB % 2.7 % (<4); CREATINE KINASE 37 Units/L (39-308); CREATINE KINASE MB < 1.0 ng/mL (0-4.0); TROPONIN I < 0.02 ng/mL (0-1.5)
[2018-04-30] MEDS: PERCOCET TAB 5/325 MG PO PRN (19:25)
[2018-04-30] MEDS ORDERED: K-DUR TAB 20 MEQ PO PRN (19:55)
[2018-04-30] MEDS ORDERED: K-RIDER 10 MEQ/NS 100 ML 10 MEQ/100 ML BAG IV PRN (19:55)
[2018-04-30] MEDS ORDERED: KLOR-CON PO PRN (19:55)
[2018-04-30] MEDS ORDERED: POTASSIUM CHL 40 MEQ/NS 0.45% 500 ML IV PRN (19:55)
[2018-04-30] MEDS ORDERED: MICRO K EXTEN CAP 10 MEQ PO PRN (19:55)
[2018-04-30] MEDS ORDERED: POTASSIUM CHL 60 MEQ/NS 0.45% 500 ML IV PRN (19:55)
[2018-04-30] MEDS ORDERED: POTASSIUM CHLORIDE LIQ 20 MEQ UDC PO PRN (19:55)
[2018-04-30] MEDS: MAGNESIUM SULFATE 1 GRAM/100 mL PREMIX 1 GM/100 ML BAG IV PRN ×3 (20:00→23:23)
[2018-04-30] MEDS: DUONEB 0.5 MG/3 MG NEB PRN (20:59)
[2018-04-30 21:38] LABS: CKMB % 3.9 % (<4); CREATINE KINASE 26 Units/L (39-308); CREATINE KINASE MB < 1.0 ng/mL (0-4.0); TROPONIN I < 0.02 ng/mL (0-1.5)
[2018-04-30] MEDS: PREVACID PO SCH (23:47)
[2018-04-30] MEDS: NORVASC TAB 10 MG PO SCH (23:47)
[2018-04-30] MEDS: PATIENT'S HOME MEDICATION PO SCH ×4 (23:48)
[2018-04-30] MEDS: INDERAL TAB 10 MG PO SCH (23:51)
[2018-05-01] MEDS: MAGNESIUM SULFATE 1 GRAM/100 mL PREMIX 1 GM/100 ML BAG IV PRN (00:40)
[2018-05-01] MEDS: NS 1/2 + KCL 20 MEQ/L 1,000 ML IV SCH ×4 (05:48→23:54)
[2018-05-01 06:13] LABS: HEMATOCRIT 30.7 % (42.0-54.0); HEMOGLOBIN 10.5 g/dL (13.5-18.0); MEAN CORPUSCULAR HEMOGLOBIN 36.9 pg (27.0-34.0); MEAN CORPUSCULAR HGB CONC 34.3 g/dL (33.0-35.0); MEAN CORPUSCULAR VOLUME 107.5 fL (80.0-100.0); MEAN PLATELET VOLUME 8.5 fL (7.4-11.0); PLATELET COUNT 96 X10^3/uL (150.0-450.0); RED BLOOD COUNT 2.85 X10^6/uL (4.7-6.0); RED CELL DISTRIBUTION WIDTH 18.6 % (11.6-16.5); WHITE BLOOD COUNT 2.5 X10^3/uL (3.6-10.0)
[2018-05-01 06:23] LABS: ALANINE AMINOTRANSFERASE 62 Units/L (12-78); ALBUMIN 2.2 g/dL (3.4-5.0); ALKALINE PHOSPHATASE 262 Units/L (46-116); ASPARTATE AMINO TRANSFERASE 89 Units/L (15-37); BLOOD UREA NITROGEN 5 mg/dL (7-18); CALCIUM 7.6 mg/dL (8.5-10.1); CARBON DIOXIDE 26.3 mmol/L (21-32); CHLORIDE 103 mmol/L (98-107); MAGNESIUM 2.7 mg/dL (1.7-2.9); SODIUM 136 mmol/L (136-145); TOTAL PROTEIN 6.6 g/dL (6.4-8.2); eGFR NON BLACK RACES > 60 (>60)
[2018-05-01 06:54] LABS: BAND NEUTROPHILS % 2 % (0-10)
[2018-05-01 06:55] LABS: PLATELET MORPHOLOGY COMMENT NORMAL (NORMAL)
[2018-05-01] MEDS ORDERED: LIBRAX PO PRN (08:58)
[2018-05-01] MEDS ORDERED: PHARMACY CONSULT - TPN XX SCH (09:00)
[2018-05-01] MEDS: ZOFRAN INJ 4 MG VIAL IVP PRN ×2 (09:09→15:48)
[2018-05-01] MEDS: PREVACID PO SCH (09:10)
[2018-05-01] MEDS: PATIENT'S HOME MEDICATION PO SCH ×5 (09:10→20:30)
[2018-05-01] MEDS: ALBUMIN HUMAN 25%- 100 ML 100 ML IV SCH (09:11)
[2018-05-01] MEDS: PROTONIX INJ 40 MG VIAL IVP SCH ×2 (09:23→20:31)
[2018-05-01] MEDS: DUONEB 0.5 MG/3 MG NEB PRN (09:25)
[2018-05-01] MEDS: LEVSIN/MAALOX/LIDOC VISC PO SCH ×4 (09:30→20:28)
[2018-05-01] MEDS: PEPCID 20 MG IV PREMIX* 20 MG/50 ML BAG IV SCH ×2 (09:30→20:31)
[2018-05-01 10:10] LABS: HEMATOCRIT 33.2 % (42.0-54.0); HEMOGLOBIN 11.3 g/dL (13.5-18.0)
[2018-05-01 14:05] LABS: HEMOGLOBIN 10.3 g/dL (13.5-18.0)
[2018-05-01] MEDS: XANAX PO PRN ×2 (14:15→21:57)
[2018-05-01] MEDS: PERCOCET TAB 5/325 MG PO PRN ×2 (14:15→21:57)
[2018-05-01] MEDS: PROCALAMINE 3 % 1,000 ML IV SCH (16:03)
--- NOTE | 2018-05-01 16:36 | CT ---
HISTORY: Abdominal pain and bloating Study: CT abdomen and pelvis with contrast Comparison: 05/20/2017 Technique: Multiple axial images of the abdomen and pelvis were obtained with IV contrast. Oral contrast was administered. Dose reduction techniques including Automated Exposure Control (AEC) and adjustment of mA and kV were utilized. Findings: The visualized portions of the lung bases are clear. The liver, spleen, pancreas, and adrenal glands are unremarkable. The gallbladder is normal. No renal calculi or obstructive uropathy. No free intraperitoneal air. No evidence of intestinal obstruction or inflammation. Oral contrast reaches cecum. The appendix is not visualized. No free fluid or abscess identified. There are partially visualized postsurgical changes of the right hip. The vascular structures are within normal limits for age. No pathologically enlarged lymph nodes are identified. Normal urinary bladder. IMPRESSION: 1.Negative CT of the abdomen and pelvis. Reported By:
[2018-05-01 18:58] LABS: HEMATOCRIT 30.3 % (42.0-54.0); HEMOGLOBIN 10.5 g/dL (13.5-18.0)
[2018-05-01] MEDS: INDERAL TAB 10 MG PO SCH (20:27)
[2018-05-01] MEDS: NORVASC TAB 10 MG PO SCH (20:27)
[2018-05-01 22:15] LABS: HEMATOCRIT 30.9 % (42.0-54.0); HEMOGLOBIN 10.5 g/dL (13.5-18.0)
[2018-05-02 02:13] LABS: HEMATOCRIT 29.4 % (42.0-54.0); HEMOGLOBIN 10.2 g/dL (13.5-18.0)
[2018-05-02] MEDS: NS 1/2 + KCL 20 MEQ/L 1,000 ML IV SCH ×2 (06:06→20:51)
[2018-05-02 06:13] LABS: BASOPHILS % (AUTO) 1.2 % (0.2-1.0); EOSINOPHILS % (AUTO) 0.8 % (0.9-2.9); HEMATOCRIT 28.6 % (42.0-54.0); LYMPHOCYTES # (AUTO) 1.3 X10^3/uL (1.3-2.9); LYMPHOCYTES % (AUTO) 43.6 % (21.0-51.0); MEAN CORPUSCULAR HEMOGLOBIN 38.7 pg (27.0-34.0); MEAN CORPUSCULAR HGB CONC 34.9 g/dL (33.0-35.0); MEAN CORPUSCULAR VOLUME 111.2 fL (80.0-100.0); MEAN PLATELET VOLUME 8.3 fL (7.4-11.0); MONOCYTES # (AUTO) 0.5 x10^3/uL (0.3-0.8); MONOCYTES % (AUTO) 17.6 % (0.0-13.0); NEUTROPHILS # (AUTO) 1.1 x10^3/uL (2.2-4.8); NEUTROPHILS % (AUTO) 36.8 % (42.0-75.0); PLATELET COUNT 107 X10^3/uL (150.0-450.0); RED BLOOD COUNT 2.58 X10^6/uL (4.7-6.0); WHITE BLOOD COUNT 2.9 X10^3/uL (3.6-10.0)
[2018-05-02 06:38] LABS: ALANINE AMINOTRANSFERASE 71 Units/L (12-78); ALBUMIN 2.6 g/dL (3.4-5.0); ALKALINE PHOSPHATASE 224 Units/L (46-116); ASPARTATE AMINO TRANSFERASE 84 Units/L (15-37); BLOOD UREA NITROGEN 5 mg/dL (7-18); CALCIUM 8.1 mg/dL (8.5-10.1); CARBON DIOXIDE 26.2 mmol/L (21-32); CHLORIDE 103 mmol/L (98-107); COR CA(FOR HYPOALB) 9.2 mg/dL (8.5-10.1); CREATININE 0.79 mg/dL (0.70-1.30); SODIUM 136 mmol/L (136-145); TOTAL PROTEIN 6.7 g/dL (6.4-8.2); eGFR NON BLACK RACES > 60 (>60)
[2018-05-02 06:48] LABS: BAND NEUTROPHILS % 1 % (0-10)
[2018-05-02 06:49] LABS: ANISOCYTOSIS SLIGHT; METAMYELOCYTES % 4; PLATELET MORPHOLOGY COMMENT NORMAL (NORMAL)
[2018-05-02] MEDS: ZOFRAN INJ 4 MG VIAL IVP PRN (07:50)
[2018-05-02] MEDS: DUONEB 0.5 MG/3 MG NEB PRN (08:55)
[2018-05-02] MEDS: PROTONIX INJ 40 MG VIAL IVP SCH ×2 (09:03→20:50)
[2018-05-02] MEDS: LEVSIN/MAALOX/LIDOC VISC PO SCH ×4 (09:03→20:49)
[2018-05-02] MEDS: PEPCID 20 MG IV PREMIX* 20 MG/50 ML BAG IV SCH ×2 (09:03→20:49)
[2018-05-02] MEDS: PATIENT'S HOME MEDICATION PO SCH ×5 (09:04→20:52)
[2018-05-02] MEDS: COLACE CAP 100 MG PO PRN ×2 (10:47→20:51)
[2018-05-02] MEDS: MILK OF MAGNESIA PO PRN ×2 (10:47→20:50)
[2018-05-02] MEDS: ALBUMIN HUMAN 25%- 100 ML 100 ML IV SCH (10:49)
--- NOTE | 2018-05-02 12:33 | PCM.PROG ---
Progress Note Past Medical Family Social History Allergies: Allergies escitalopram [From Lexapro] Allergy (Verified 04/30/18 12:52) antidepressants Allergy (Uncoded 07/22/16 18:32) Vital Signs and I&O's Vital Signs: Temperature 98.3 F Pulse Rate 92 Respiratory Rate 24 Blood Pressure [Right Arm] 124/82 Blood Pressure 141/70 O2 Sat by Pulse Oximetry 97 Intake and Output: Intake & Output 04/29/18 04/30/18 05/01/18 05/02/18 23:59 23:59 23:59 23:59 Intake Total 1456 / 1456 3576 / 3576 1080 / 1080 Output Total 1625 / 1625 3250 / 3250 1800 / 1800 Balance -169 / -169 326 / 326 -720 / -720 Physical Exam Oriented: Normal, Time, Person and Place Eyes: Normal Ear: Normal Nose: Normal Throat: Normal Respiratory: Rhonchi Cardiovascular: Normal Speech Pattern: Clear and Appropriate Laboratory and Diagnostics Result Diagrams: 05/02/18 04:38 05/02/18 04:38 Labs: Laboratory WBC 2.9 X10^3/uL (3.6-10.0) L 05/02/18 04:38 RBC 2.58 X10^6/uL (4.7-6.0) L 05/02/18 04:38 Hgb 10.0 g/dL (13.5-18.0) L 05/02/18 04:38 Hct 28.6 % (42.0-54.0) L 05/02/18 04:38 MCV 111.2 fL (80.0-100.0) H 05/02/18 04:38 MCH 38.7 pg (27.0-34.0) H 05/02/18 04:38 MCHC 34.9 g/dL (33.0-35.0) 05/02/18 04:38 RDW 18.0 % (11.6-16.5) H 05/02/18 04:38 Plt Count 107 X10^3/uL (150.0-450.0) L 05/02/18 04:38 Plt Count Comment Decreased (ADEQUATE) 05/02/18 04:38 MPV 8.3 fL (7.4-11.0) 05/02/18 04:38 Neut % (Auto) 36.8 % (42.0-75.0) L 05/02/18 04:38 Lymph % (Auto) 43.6 % (21.0-51.0) 05/02/18 04:38 [place] % (Auto) 17.6 % (0.0-13.0) H 05/02/18 04:38 Eos % (Auto) 0.8 % (0.9-2.9) L 05/02/18 04:38 Baso % (Auto) 1.2 % (0.2-1.0) H 05/02/18 04:38 Neut # (Auto) 1.1 x10^3/uL (2.2-4.8) L 05/02/18 04:38 Lymph # (Auto) 1.3 X10^3/uL (1.3-2.9) 05/02/18 04:38 [place] # (Auto) 0.5 x10^3/uL (0.3-0.8) 05/02/18 04:38 Eos # (Auto) 0.0 x10^3/uL (0.0-0.2) 05/02/18 04:38 Baso # (Auto) 0.0 X10^3/uL (0.0-0.1) 05/02/18 04:38 Absolute Nucleated RBC 0.3 /100WBC 05/02/18 04:38 Total Counted 100 05/02/18 04:38 Neutrophils % (Manual) 43 % (39-76) 05/02/18 04:38 Band Neutrophils % 1 % (0-10) 05/02/18 04:38 Lymphocytes % (Manual) 47 % (13-43) H 05/02/18 04:38 Monocytes % (Manual) 5 % (4-9) 05/02/18 04:38 Metamyelocytes % 4 05/02/18 04:38 Plt Morphology Comment Normal (NORMAL) 05/02/18 04:38 RBC Morphology Abnormal (NORMAL) 05/02/18 04:38 Anisocytosis Slight A 05/02/18 04:38 Macrocytosis 2+ A 05/02/18 04:38 Sodium 136 mmol/L (136-145) 05/02/18 04:38 Corrected Sodium TNP 05/02/18 04:38 Potassium 4.8 mmol/L (3.5-5.1) 05/02/18 04:38 Chloride 103 mmol/L (98-107) 05/02/18 04:38 Carbon Dioxide 26.2 mmol/L (21-32) 05/02/18 04:38 BUN 5 mg/dL (7-18) L 05/02/18 04:38 Creatinine 0.79 mg/dL (0.70-1.30) 05/02/18 04:38 Est GFR (MDRD) Af Amer > 60 (>60) 05/02/18 04:38 Est GFR (MDRD) Non-Af > 60 (>60) 05/02/18 04:38 Glucose 98 mg/dL (65-99) 05/02/18 04:38 Calcium 8.1 mg/dL (8.5-10.1) L 05/02/18 04:38 Corrected Calcium 9.2 mg/dL (8.5-10.1) 05/02/18 04:38 Magnesium 2.7 mg/dL (1.7-2.9) 05/01/18 05:20 Total Bilirubin 1.60 mg/dL (0.2-1.0) H 05/02/18 04:38 AST 84 Units/L (15-37) H 05/02/18 04:38 ALT 71 Units/L (12-78) 05/02/18 04:38 Alkaline Phosphatase 224 Units/L (46-116) H 05/02/18 04:38 Creatine Kinase 26 Units/L (39-308) L 04/30/18 21:05 CK-MB (CK-2) < 1.0 ng/mL (0-4.0) 04/30/18 21:05 CK/CKMB % Calc 3.9 % (<4) 04/30/18 21:05 Troponin I < 0.02 ng/mL (0-1.5) 04/30/18 21:05 Total Protein 6.7 g/dL (6.4-8.2) 05/02/18 04:38 Albumin 2.6 g/dL (3.4-5.0) L 05/02/18 04:38 Globulin 4.1 g/dL (2.5-4.5) 05/02/18 04:38 Albumin/Globulin Ratio 0.6 Ratio (1.1-2.1) L 05/02/18 04:38 Prealbumin 18.2 mg/dL (18-35.7) 05/01/18 05:20 Specimen Type Clean catch urine 04/30/18 13:45 Urine Color [place] (YELLOW) 04/30/18 13:45 Urine Appearance Slightly hazy (CLEAR) 04/30/18 13:45 Urine pH 7.0 (5.0 - 8.0) 04/30/18 13:45 Ur Specific [place] 1.005 (1.000-1.030) 04/30/18 13:45 Urine Protein 1+ (NEGATIVE) 04/30/18 13:45 Urine Glucose (UA) Negative (NEGATIVE) 04/30/18 13:45 Urine Ketones Negative (NEGATIVE) 04/30/18 13:45 Urine Occult Blood Negative (NEGATIVE) 04/30/18 13:45 Urine Nitrite Negative (NEGATIVE) 04/30/18 13:45 Urine Bilirubin 1+ (NEGATIVE) 04/30/18 13:45 Urine Urobilinogen 3+ (NORMAL) 04/30/18 13:45 Ur Leukocyte Esterase 1+ (NEGATIVE) 04/30/18 13:45 Urine RBC 0-2 /HPF (NONE SEEN) 04/30/18 13:45 Urine WBC 0-2 /HPF (NONE SEEN) 04/30/18 13:45 Ur Squamous Epith Cells Rare /HPF (NEGATIVE) 04/30/18 13:45 Urine Bacteria Trace /HPF (NEGATIVE) 04/30/18 13:45 Ur Culture Indicated? No/not indicated 04/30/18 13:45 Stool Description 8g,brown,formed 05/02/18 10:38 Stl Occult Blood (IFOB) Negative (NEGATIVE) 05/02/18 10:38 Blood Type O NEGATIVE 05/02/18 08:38
[2018-05-02] MEDS: PROCALAMINE 3 % 1,000 ML IV SCH (20:48)
[2018-05-02] MEDS: NORVASC TAB 10 MG PO SCH (20:51)
[2018-05-02] MEDS: INDERAL TAB 10 MG PO SCH (20:51)
[2018-05-02] MEDS: XANAX PO PRN (20:54)
[2018-05-03 06:09] LABS: BASOPHILS # (AUTO) 0.1 X10^3/uL (0.0-0.1); BASOPHILS % (AUTO) 1.9 % (0.2-1.0); EOSINOPHILS % (AUTO) 0.7 % (0.9-2.9); HEMATOCRIT 30.1 % (42.0-54.0); HEMOGLOBIN 10.4 g/dL (13.5-18.0); LYMPHOCYTES # (AUTO) 1.3 X10^3/uL (1.3-2.9); LYMPHOCYTES % (AUTO) 43.3 % (21.0-51.0); MEAN CORPUSCULAR HEMOGLOBIN 38.4 pg (27.0-34.0); MEAN CORPUSCULAR HGB CONC 34.4 g/dL (33.0-35.0); MEAN CORPUSCULAR VOLUME 111.4 fL (80.0-100.0); MEAN PLATELET VOLUME 8.4 fL (7.4-11.0); MONOCYTES # (AUTO) 0.5 x10^3/uL (0.3-0.8); MONOCYTES % (AUTO) 16.3 % (0.0-13.0); NEUTROPHILS # (AUTO) 1.1 x10^3/uL (2.2-4.8); NEUTROPHILS % (AUTO) 37.8 % (42.0-75.0); PLATELET COUNT 146 X10^3/uL (150.0-450.0); RED CELL DISTRIBUTION WIDTH 18.1 % (11.6-16.5); WHITE BLOOD COUNT 2.9 X10^3/uL (3.6-10.0)
[2018-05-03 06:35] LABS: ALANINE AMINOTRANSFERASE 65 Units/L (12-78); ALBUMIN 3.3 g/dL (3.4-5.0); ALKALINE PHOSPHATASE 204 Units/L (46-116); ASPARTATE AMINO TRANSFERASE 66 Units/L (15-37); BLOOD UREA NITROGEN 6 mg/dL (7-18); CALCIUM 8.5 mg/dL (8.5-10.1); CARBON DIOXIDE 26.6 mmol/L (21-32); CHLORIDE 98 mmol/L (98-107); COR CA(FOR HYPOALB) 9.1 mg/dL (8.5-10.1); SODIUM 132 mmol/L (136-145); TOTAL PROTEIN 7.7 g/dL (6.4-8.2); eGFR NON BLACK RACES > 60 (>60)
[2018-05-03 06:41] LABS: ANISOCYTOSIS SLIGHT; PLATELET MORPHOLOGY COMMENT NORMAL (NORMAL)
[2018-05-03] MEDS: PROTONIX INJ 40 MG VIAL IVP SCH ×2 (08:53→20:39)
[2018-05-03] MEDS: PEPCID 20 MG IV PREMIX* 20 MG/50 ML BAG IV SCH ×2 (08:53→20:39)
[2018-05-03] MEDS: PATIENT'S HOME MEDICATION PO SCH ×5 (08:54→20:39)
[2018-05-03] MEDS: LEVSIN/MAALOX/LIDOC VISC PO SCH ×4 (08:54→20:37)
[2018-05-03] MEDS: DUONEB 0.5 MG/3 MG NEB PRN (09:08)
[2018-05-03] MEDS: ALBUMIN HUMAN 25%- 100 ML 100 ML IV SCH (10:02)
--- NOTE | 2018-05-03 14:11 | RAD ---
HISTORY: Neck swelling Study: Chest AP portable Comparison: 04/30/2018 Findings: The heart is within normal limits in size. The cyndie are normal. The lung garza are clear. No pleural effusions are identified. The patient is status post thoracic aortic stent graft. Old healed rib fractures are present on the left. If there is an old overly reduced internally fixed left clavicular fracture present. IMPRESSION: Lungs clear Reported By:
[2018-05-03] MEDS: NS 1/2 + KCL 20 MEQ/L 1,000 ML IV SCH ×2 (16:29→23:25)
[2018-05-03 17:18] LABS: HEMATOCRIT 30.2 % (42.0-54.0); HEMOGLOBIN 10.4 g/dL (13.5-18.0)
[2018-05-03] MEDS: COLACE CAP 100 MG PO SCH (20:33)
[2018-05-03] MEDS: INDERAL TAB 10 MG PO SCH (20:36)
[2018-05-03] MEDS: NORVASC TAB 10 MG PO SCH (20:38)
[2018-05-03] MEDS: PROCALAMINE 3 % 1,000 ML IV SCH (23:23)
[2018-05-04 05:57] LABS: ALANINE AMINOTRANSFERASE 51 Units/L (12-78); ALKALINE PHOSPHATASE 147 Units/L (46-116); ASPARTATE AMINO TRANSFERASE 45 Units/L (15-37); BLOOD UREA NITROGEN 5 mg/dL (7-18); CARBON DIOXIDE 22.9 mmol/L (21-32); CHLORIDE 96 mmol/L (98-107); COR CA(FOR HYPOALB) 8.8 mg/dL (8.5-10.1); CREATININE 0.66 mg/dL (0.70-1.30); SODIUM 127 mmol/L (136-145); TOTAL PROTEIN 6.7 g/dL (6.4-8.2); eGFR NON BLACK RACES > 60 (>60)
[2018-05-04 06:12] LABS: BASOPHILS % (AUTO) 0.8 % (0.2-1.0); EOSINOPHILS % (AUTO) 0.8 % (0.9-2.9); HEMATOCRIT 25.3 % (42.0-54.0); HEMOGLOBIN 8.8 g/dL (13.5-18.0); LYMPHOCYTES # (AUTO) 1.2 X10^3/uL (1.3-2.9); LYMPHOCYTES % (AUTO) 47.9 % (21.0-51.0); MEAN CORPUSCULAR HEMOGLOBIN 38.4 pg (27.0-34.0); MEAN CORPUSCULAR HGB CONC 34.9 g/dL (33.0-35.0); MEAN CORPUSCULAR VOLUME 109.9 fL (80.0-100.0); MEAN PLATELET VOLUME 8.2 fL (7.4-11.0); MONOCYTES # (AUTO) 0.5 x10^3/uL (0.3-0.8); MONOCYTES % (AUTO) 18.3 % (0.0-13.0); NEUTROPHILS # (AUTO) 0.8 x10^3/uL (2.2-4.8); NEUTROPHILS % (AUTO) 32.2 % (42.0-75.0); PLATELET COUNT 136 X10^3/uL (150.0-450.0); RED CELL DISTRIBUTION WIDTH 17.3 % (11.6-16.5); WHITE BLOOD COUNT 2.5 X10^3/uL (3.6-10.0)
[2018-05-04 06:51] LABS: PLATELET MORPHOLOGY COMMENT NORMAL (NORMAL)
--- NOTE | 2018-05-04 08:08 | CT ---
HISTORY: Left neck swelling Study: CT soft tissue neck without contrast Comparison: None Technique: Axial noncontrast images with coronal and sagittal reformats. Dose reduction procedures were used with mA/kv adjusted for body size. This examination is LIMITED DUE TO THE LACK OF INTRAVENOUS CONTRAST. The examination was performed in this manner at the sole discretion of the ordering caregiver and without input requested from or given by Radiology. Findings: The parotid and submandibular glands appear symmetric and normal. No nasopharyngeal abnormality is identified. No definite or oropharyngeal abnormality is identified. The piriform sinuses are clear. No laryngeal abnormality is identified. The thyroid gland appears normal. No supraclavicular or upper mediastinal lymphadenopathy is identified. The visualized lung apices are clear. Old healed left rib fractures are identified. Postsurgical changes are present in the cervical spine. Hardware is present. The visualized sinuses are clear. There is no obvious abnormal soft tissue masses. No definite left neck swelling is identified. No significant adenopathy is present. IMPRESSION: No significant abnormality to the limitations of an examination performed without intravenous contrast. Reported By:
[2018-05-04] MEDS: DUONEB 0.5 MG/3 MG NEB PRN (09:04)
[2018-05-04] MEDS: PATIENT'S HOME MEDICATION PO SCH (09:04)
[2018-05-04] MEDS: PEPCID 20 MG IV PREMIX* 20 MG/50 ML BAG IV SCH (09:04)
[2018-05-04] MEDS: LEVSIN/MAALOX/LIDOC VISC PO SCH ×3 (09:05→17:28)
[2018-05-04] MEDS: PROTONIX INJ 40 MG VIAL IVP SCH (09:05)
[2018-05-04] MEDS: COLACE CAP 100 MG PO SCH (09:06)
[2018-05-04] MEDS: NS 1/2 + KCL 20 MEQ/L 1,000 ML IV SCH (09:06)
--- NOTE | 2018-05-04 09:22 | PCM.PROG ---
Progress Note Progress Note for Day of Date of Exam: 05/02/18 Past Medical Family Social History Allergies: Allergies escitalopram [From Lexapro] Allergy (Verified 04/30/18 12:52) antidepressants Allergy (Uncoded 07/22/16 18:32) Vital Signs and I&O's Vital Signs: Temperature 97.9 F Pulse Rate 94 Respiratory Rate 29 Blood Pressure [Right Arm] 124/82 Blood Pressure 106/56 O2 Sat by Pulse Oximetry 98 Intake and Output: Intake & Output 05/01/18 05/02/18 05/03/18 05/04/18 23:59 23:59 23:59 23:59 Intake Total 3576 / 3576 4574 / 4574 2840 / 2840 2780 / 2780 Output Total 3250 / 3250 4350 / 4350 2375 / 2375 Balance 326 / 326 224 / 224 465 / 465 2780 / 2780 Physical Exam Speech Pattern: Clear and Appropriate Laboratory and Diagnostics Result Diagrams: 05/04/18 05:14 05/04/18 05:14 Labs: Laboratory WBC 2.5 X10^3/uL (3.6-10.0) L 05/04/18 05:14 RBC 2.30 X10^6/uL (4.7-6.0) L 05/04/18 05:14 Hgb 8.8 g/dL (13.5-18.0) L 05/04/18 05:14 Hct 25.3 % (42.0-54.0) L 05/04/18 05:14 MCV 109.9 fL (80.0-100.0) H 05/04/18 05:14 MCH 38.4 pg (27.0-34.0) H 05/04/18 05:14 MCHC 34.9 g/dL (33.0-35.0) 05/04/18 05:14 RDW 17.3 % (11.6-16.5) H 05/04/18 05:14 Plt Count 136 X10^3/uL (150.0-450.0) L 05/04/18 05:14 Plt Count Comment Adequate (ADEQUATE) 05/04/18 05:14 MPV 8.2 fL (7.4-11.0) 05/04/18 05:14 Neut % (Auto) 32.2 % (42.0-75.0) L 05/04/18 05:14 Lymph % (Auto) 47.9 % (21.0-51.0) 05/04/18 05:14 [place] % (Auto) 18.3 % (0.0-13.0) H 05/04/18 05:14 Eos % (Auto) 0.8 % (0.9-2.9) L 05/04/18 05:14 Baso % (Auto) 0.8 % (0.2-1.0) 05/04/18 05:14 Neut # (Auto) 0.8 x10^3/uL (2.2-4.8) L 05/04/18 05:14 Lymph # (Auto) 1.2 X10^3/uL (1.3-2.9) L 05/04/18 05:14 [place] # (Auto) 0.5 x10^3/uL (0.3-0.8) 05/04/18 05:14 Eos # (Auto) 0.0 x10^3/uL (0.0-0.2) 05/04/18 05:14 Baso # (Auto) 0.0 X10^3/uL (0.0-0.1) 05/04/18 05:14 Absolute Nucleated RBC 0.1 /100WBC 05/04/18 05:14 Total Counted 100 05/02/18 04:38 Neutrophils % (Manual) 43 % (39-76) 05/02/18 04:38 Band Neutrophils % 1 % (0-10) 05/02/18 04:38 Lymphocytes % (Manual) 47 % (13-43) H 05/02/18 04:38 Monocytes % (Manual) 5 % (4-9) 05/02/18 04:38 Metamyelocytes % 4 05/02/18 04:38 Plt Morphology Comment Normal (NORMAL) 05/04/18 05:14 RBC Morphology Abnormal (NORMAL) 05/04/18 05:14 Anisocytosis Slight A 05/03/18 05:14 Macrocytosis 1+ A 05/04/18 05:14 Sodium 127 mmol/L (136-145) L 05/04/18 05:14 Corrected Sodium TNP 05/04/18 05:14 Potassium 3.8 mmol/L (3.5-5.1) 05/04/18 05:14 Chloride 96 mmol/L (98-107) L 05/04/18 05:14 Carbon Dioxide 22.9 mmol/L (21-32) 05/04/18 05:14 BUN 5 mg/dL (7-18) L 05/04/18 05:14 Creatinine 0.66 mg/dL (0.70-1.30) L 05/04/18 05:14 Est GFR (MDRD) Af Amer > 60 (>60) 05/04/18 05:14 Est GFR (MDRD) Non-Af > 60 (>60) 05/04/18 05:14 Glucose 97 mg/dL (65-99) 05/04/18 05:14 Calcium 8.0 mg/dL (8.5-10.1) L 05/04/18 05:14 Corrected Calcium 8.8 mg/dL (8.5-10.1) 05/04/18 05:14 Magnesium 2.7 mg/dL (1.7-2.9) 05/01/18 05:20 Total Bilirubin 1.60 mg/dL (0.2-1.0) H 05/04/18 05:14 AST 45 Units/L (15-37) H 05/04/18 05:14 ALT 51 Units/L (12-78) 05/04/18 05:14 Alkaline Phosphatase 147 Units/L (46-116) H 05/04/18 05:14 Creatine Kinase 26 Units/L (39-308) L 04/30/18 21:05 CK-MB (CK-2) < 1.0 ng/mL (0-4.0) 04/30/18 21:05 CK/CKMB % Calc 3.9 % (<4) 04/30/18 21:05 Troponin I < 0.02 ng/mL (0-1.5) 04/30/18 21:05 Total Protein 6.7 g/dL (6.4-8.2) 05/04/18 05:14 Albumin 3.0 g/dL (3.4-5.0) L 05/04/18 05:14 Globulin 3.7 g/dL (2.5-4.5) 05/04/18 05:14 Albumin/Globulin Ratio 0.8 Ratio (1.1-2.1) L 05/04/18 05:14 Prealbumin 18.2 mg/dL (18-35.7) 05/01/18 05:20 Specimen Type Clean catch urine 04/30/18 13:45 Urine Color [place] (YELLOW) 04/30/18 13:45 Urine Appearance Slightly hazy (CLEAR) 04/30/18 13:45 Urine pH 7.0 (5.0 - 8.0) 04/30/18 13:45 Ur Specific [place] 1.005 (1.000-1.030) 04/30/18 13:45 Urine Protein 1+ (NEGATIVE) 04/30/18 13:45 Urine Glucose (UA) Negative (NEGATIVE) 04/30/18 13:45 Urine Ketones Negative (NEGATIVE) 04/30/18 13:45 Urine Occult Blood Negative (NEGATIVE) 04/30/18 13:45 Urine Nitrite Negative (NEGATIVE) 04/30/18 13:45 Urine Bilirubin 1+ (NEGATIVE) 04/30/18 13:45 Urine Urobilinogen 3+ (NORMAL) 04/30/18 13:45 Ur Leukocyte Esterase 1+ (NEGATIVE) 04/30/18 13:45 Urine RBC 0-2 /HPF (NONE SEEN) 04/30/18 13:45 Urine WBC 0-2 /HPF (NONE SEEN) 04/30/18 13:45 Ur Squamous Epith Cells Rare /HPF (NEGATIVE) 04/30/18 13:45 Urine Bacteria Trace /HPF (NEGATIVE) 04/30/18 13:45 Ur Culture Indicated? No/not indicated 04/30/18 13:45 Stool Description 8g,brown,formed 05/02/18 10:38 Stl Occult Blood (IFOB) Negative (NEGATIVE) 05/02/18 10:38 Blood Type O NEGATIVE 05/02/18 08:38 Plan (1) Breath shortness: Status: Acute (2) Anemia: Status: Acute
[2018-05-04] MEDS ORDERED: BENADRYL INJ 50 MG VIAL IVP PRN (09:25)
[2018-05-04] MEDS ORDERED: NS 500 ML IV 500 ML IV ONE (09:25)
[2018-05-04] MEDS ORDERED: TYLENOL 325 MG TAB PO PRN (09:25)
[2018-05-04] MEDS ORDERED: KLONOPIN TAB 0.5 MG PO SCH (10:00)
[2018-05-04] MEDS ORDERED: NS 250 ML IV 0 ML IV ONE (10:11)
[2018-05-04] MEDS: ALBUMIN HUMAN 25%- 100 ML 100 ML IV SCH (10:13)
--- NOTE | 2018-05-04 10:36 | DR.UPDATE ---
H&P Update History and Physical Update: WAS SEEN IN THE OFFICE TODAY FOR SHORTNESS OF BREATH. HE WAS ADMITTED FOR FURTHER EVALUATION AND TREATMENT. A H&P WAS COMPLETED PRIOR TO ADMISSION. PATIENT HAS BEEN SEEN AND EXAMINED WITH NO CHANGES NOTED TO H&P. Changes noted: NO Yes with the following:
--- NOTE | 2018-05-04 11:49 | PCM.PROG ---
Progress Note - Progress Note for Day of Date of Exam: 05/01/18 - Subjective Subjective: WAS ADMITTED FOR COMPLAINTS OF SHORTNESS OF BREATH AND GENERALIZED WEAKNESS. TODAY, HE IS ALERT AND ORIENTED, LYING IN BED ON MORNING ROUNDS. HE IS NOTED TO BE PALE IN COLOR. HE CONTINUES WITH COMPLAINTS OF WEAKNESS, SHORTNESS OF BREATH, AND ALSO REPORTS UPPER ABDOMINAL PAIN. PATIENT REPORTS PAIN TO THE LUQ FOR A FEW MONTHS FOLLOWING A FALL. HE REPORTS DIARRHEA FOR THE PAST FEW DAYS. ON EXAMINATION, HEART IS REGULAR IN RATE AND RHYTHM. BILATERAL LUNGS ARE NOTED WITH DIMINISHED LUNG SOUNDS THROUGHOUT. ABDOMEN IS NOTED WITH LUQ TENDERNESS WITH NORMAL BOWEL SOUNDS NOTED IN ALL QUADRNATS. HIS VITALS THIS MORNING ARE 97.3-77-15-98%-113/64. LABS WERE OBTAINED. ABNORMAL LAB VALUES INCLUDE THE FOLLOWING: WBC 2.5, RBC 2.85, HGB 10.5, HCT 30.7, PLT COUNT 96, POTASSIUM 3.4, BUN 5, CALCIUM 7.6, TOTAL BILI 1.70, AST 89, ALK PHOS 262, ALBUMIN 2.2. A CHEST CTA WITH CONTRAST WAS OBTAINED AON ADMISSION AND REVEALED: No evidence of central pulmonary embolus. However, the pulmonary arterial branches distal to the 2nd order branches cannot be adequately assessed due to suboptimal opacification. If concern for acute pulmonary embolus persists, correlation nuclear medicine ventilation perfusion study would be beneficial. AN ECHO WAS OBTAINED AND REVEALED AN EJECTION FRACTION OF 75%. EKG REVEALED SINUS RHYTHM WITH HR 72. TODAY, WE PLAN TO OBTAIN AN ABDOMEN/PELVIS CT WITH CONTRAST, OBTAIN STOOLS FOR OCCULT BLOOD, MONITOR H&H Q4H AND TRANSFUSE IF LESS THAN 9. WE WILL START ALBUMIN 25% IV DAILY, TPN, PEPCID AND PROTONIX IV, LIBRAX TID PRN FOR DIARRHEA, AND GI COCKTAIL. OTHERWISE, WE WILL FOLLOW UP WITH AM LABS AND CONTINUE TO MONITOR. - Past Medical Family Social History Past Med/Fam/Surg Hx: No changes since H&P Allergies: Allergies escitalopram [From Lexapro] Allergy (Verified 04/30/18 12:52) antidepressants Allergy (Uncoded 07/22/16 18:32) - Review of Systems ROS: No change since H&P - Vital Signs and I&O's Vital Signs: Temperature 97.9 F Pulse Rate 94 Respiratory Rate 29 Blood Pressure [Right Arm] 124/82 Blood Pressure 106/56 O2 Sat by Pulse Oximetry 98 Intake and Output: Intake & Output 05/01/18 05/02/18 05/03/18 05/04/18 11:59 11:59 11:59 11:59 Intake Total 2197 / 2197 3915 / 3915 3704 / 3704 5410 / 5410 Output Total 2150 / 2150 4525 / 4525 3050 / 3050 1875 / 1875 Balance 47 / 47 -610 / -610 654 / 654 3535 / 3535 - Physical Exam Oriented: Normal Eyes: Normal Ear: Normal Nose: Normal Throat: Normal Respiratory: Generalized, Diminished Cardiovascular: Normal. negative: S3, S4, Murmur : Normal Auscultation: Bowel Sounds: Normal Palpation: Normal Tenderness: LUQ, Moderate. negative: Rebound, Guarding, Rigidity Skin: Normal Musculoskeletal: Normal Psychiatric: Normal Mood Description: Calm Affect: Normal Speech Pattern: Clear, Appropriate - Laboratory and Diagnostics Result Diagrams: 05/04/18 05:14 05/04/18 05:14 Labs: Laboratory WBC 2.5 X10^3/uL (3.6-10.0) L 05/04/18 05:14 RBC 2.30 X10^6/uL (4.7-6.0) L 05/04/18 05:14 Hgb 8.8 g/dL (13.5-18.0) L 05/04/18 05:14 Hct 25.3 % (42.0-54.0) L 05/04/18 05:14 MCV 109.9 fL (80.0-100.0) H 05/04/18 05:14 MCH 38.4 pg (27.0-34.0) H 05/04/18 05:14 MCHC 34.9 g/dL (33.0-35.0) 05/04/18 05:14 RDW 17.3 % (11.6-16.5) H 05/04/18 05:14 Plt Count 136 X10^3/uL (150.0-450.0) L 05/04/18 05:14 Plt Count Comment Adequate (ADEQUATE) 05/04/18 05:14 MPV 8.2 fL (7.4-11.0) 05/04/18 05:14 Neut % (Auto) 32.2 % (42.0-75.0) L 05/04/18 05:14 Lymph % (Auto) 47.9 % (21.0-51.0) 05/04/18 05:14 [place] % (Auto) 18.3 % (0.0-13.0) H 05/04/18 05:14 Eos % (Auto) 0.8 % (0.9-2.9) L 05/04/18 05:14 Baso % (Auto) 0.8 % (0.2-1.0) 05/04/18 05:14 Neut # (Auto) 0.8 x10^3/uL (2.2-4.8) L 05/04/18 05:14 Lymph # (Auto) 1.2 X10^3/uL (1.3-2.9) L 05/04/18 05:14 [place] # (Auto) 0.5 x10^3/uL (0.3-0.8) 05/04/18 05:14 Eos # (Auto) 0.0 x10^3/uL (0.0-0.2) 05/04/18 05:14 Baso # (Auto) 0.0 X10^3/uL (0.0-0.1) 05/04/18 05:14 Absolute Nucleated RBC 0.1 /100WBC 05/04/18 05:14 Total Counted 100 05/02/18 04:38 Neutrophils % (Manual) 43 % (39-76) 05/02/18 04:38 Band Neutrophils % 1 % (0-10) 05/02/18 04:38 Lymphocytes % (Manual) 47 % (13-43) H 05/02/18 04:38 Monocytes % (Manual) 5 % (4-9) 05/02/18 04:38 Metamyelocytes % 4 05/02/18 04:38 Plt Morphology Comment Normal (NORMAL) 05/04/18 05:14 RBC Morphology Abnormal (NORMAL) 05/04/18 05:14 Anisocytosis Slight A 05/03/18 05:14 Macrocytosis 1+ A 05/04/18 05:14 Sodium 127 mmol/L (136-145) L 05/04/18 05:14 Corrected Sodium TNP 05/04/18 05:14 Potassium 3.8 mmol/L (3.5-5.1) 05/04/18 05:14 Chloride 96 mmol/L (98-107) L 05/04/18 05:14 Carbon Dioxide 22.9 mmol/L (21-32) 05/04/18 05:14 BUN 5 mg/dL (7-18) L 05/04/18 05:14 Creatinine 0.66 mg/dL (0.70-1.30) L 05/04/18 05:14 Est GFR (MDRD) Af Amer > 60 (>60) 05/04/18 05:14 Est GFR (MDRD) Non-Af > 60 (>60) 05/04/18 05:14 Glucose 97 mg/dL (65-99) 05/04/18 05:14 Calcium 8.0 mg/dL (8.5-10.1) L 05/04/18 05:14 Corrected Calcium 8.8 mg/dL (8.5-10.1) 05/04/18 05:14 Magnesium 2.7 mg/dL (1.7-2.9) 05/01/18 05:20 Total Bilirubin 1.60 mg/dL (0.2-1.0) H 05/04/18 05:14 AST 45 Units/L (15-37) H 05/04/18 05:14 ALT 51 Units/L (12-78) 05/04/18 05:14 Alkaline Phosphatase 147 Units/L (46-116) H 05/04/18 05:14 Creatine Kinase 26 Units/L (39-308) L 04/30/18 21:05 CK-MB (CK-2) < 1.0 ng/mL (0-4.0) 04/30/18 21:05 CK/CKMB % Calc 3.9 % (<4) 04/30/18 21:05 Troponin I < 0.02 ng/mL (0-1.5) 04/30/18 21:05 Total Protein 6.7 g/dL (6.4-8.2) 05/04/18 05:14 Albumin 3.0 g/dL (3.4-5.0) L 05/04/18 05:14 Globulin 3.7 g/dL (2.5-4.5) 05/04/18 05:14 Albumin/Globulin Ratio 0.8 Ratio (1.1-2.1) L 05/04/18 05:14 Prealbumin 18.2 mg/dL (18-35.7) 05/01/18 05:20 Specimen Type Clean catch urine 04/30/18 13:45 Urine Color [place] (YELLOW) 04/30/18 13:45 Urine Appearance Slightly hazy (CLEAR) 04/30/18 13:45 Urine pH 7.0 (5.0 - 8.0) 04/30/18 13:45 Ur Specific [place] 1.005 (1.000-1.030) 04/30/18 13:45 Urine Protein 1+ (NEGATIVE) 04/30/18 13:45 Urine Glucose (UA) Negative (NEGATIVE) 04/30/18 13:45 Urine Ketones Negative (NEGATIVE) 04/30/18 13:45 Urine Occult Blood Negative (NEGATIVE) 04/30/18 13:45 Urine Nitrite Negative (NEGATIVE) 04/30/18 13:45 Urine Bilirubin 1+ (NEGATIVE) 04/30/18 13:45 Urine Urobilinogen 3+ (NORMAL) 04/30/18 13:45 Ur Leukocyte Esterase 1+ (NEGATIVE) 04/30/18 13:45 Urine RBC 0-2 /HPF (NONE SEEN) 04/30/18 13:45 Urine WBC 0-2 /HPF (NONE SEEN) 04/30/18 13:45 Ur Squamous Epith Cells Rare /HPF (NEGATIVE) 04/30/18 13:45 Urine Bacteria Trace /HPF (NEGATIVE) 04/30/18 13:45 Ur Culture Indicated? No/not indicated 04/30/18 13:45 Stool Description 8g,brown,formed 05/02/18 10:38 Stl Occult Blood (IFOB) Negative (NEGATIVE) 05/02/18 10:38 Blood Type O NEGATIVE 05/02/18 08:38 Antibody Screen Negative 05/02/18 08:38 Crossmatch See Detail 05/02/18 08:38 - Plan (1) Breath shortness Status: Acute Plan: RESPIRATORY TREATMENTS, SUPPLEMENTAL OXYGEN, CONTINUE TO MONITOR (2) Abdominal pain Status: Acute Qualifiers: Abdominal location: left upper quadrant Qualified Code(s): R10.12 - Left upper quadrant pain Plan: ABDOMEN/PELVIS CT WITH CONTRAST, OBTAIN STOOL STUDIES, PEPCID AND PROTONIX IV, LIBRAX TID PRN, CONTINUE TO MONITOR (3) Anemia Status: Acute Qualifiers: Anemia type: iron deficiency Iron deficiency anemia type: chronic blood loss Qualified Code(s): D50.0 - Iron deficiency anemia secondary to blood loss (chronic) Plan: OBTAIN STOOL STUDIES, MONITOR H&H Q4H, CONTINUE TO MONITOR (4) Generalized weakness Status: Acute Plan: ALBUMIN 25% IV DAILY, TPN, CONTINUE TO MONITOR
[2018-05-04] MEDS ORDERED: NS 250 ML IV 250 ML IV ONE (14:58)
[2018-05-04 18:27] VITALS: BP 154/74
[2018-05-04 19:11] LABS: HEMATOCRIT 32.6 % (42.0-54.0); HEMOGLOBIN 11.4 g/dL (13.5-18.0)
--- NOTE | 2018-06-08 00:48 | DR.CARTERD ---
- Discharge Summary for: Discharge Summary for Date of:: 05/04/18 - Admission Date Date of Admission: 04/30/18 - Admission Diagnoses Admission Diagnosis: (1) Abdominal pain (2) Breath shortness (3) Anemia (4) Generalized weakness - Discharge Date Discharge Date: 05/04/18 - Discharge Diagnoses Discharge Diagnosis: (1) Abdominal pain (2) Breath shortness (3) Anemia (4) Generalized weakness - Hospital Course Hospital Course: DAY ONE, WAS SEEN IN THE OFFICE TODAY FOR SHORTNESS OF BREATH. HE WAS ADMITTED FOR FURTHER EVALUATION AND TREATMENT. WE CONTINUED TO MONITOR PATIENT. DAY TWO. HE WAS ALERT AND ORIENTED, LYING IN BED ON MORNING ROUNDS. HE WAS NOTED TO BE PALE IN COLOR. HE CONTINUED WITH COMPLAINTS OF WEAKNESS, SHORTNESS OF BREATH, AND ALSO REPORTED UPPER ABDOMINAL PAIN. PATIENT REPORTED PAIN TO THE LUQ FOR A FEW MONTHS FOLLOWING A FALL. HE REPORTED DIARRHEA FOR THE PAST FEW DAYS. ON EXAMINATION, HEART WAS REGULAR IN RATE AND RHYTHM. BILATERAL LUNGS WERE NOTED WITH DIMINISHED LUNG SOUNDS THROUGHOUT. ABDOMEN WAS NOTED WITH LUQ TENDERNESS WITH NORMAL BOWEL SOUNDS NOTED IN ALL QUADRNATS. HIS VITALS THIS MORNING WERE 97.3-77-15-98%-113/64. LABS WERE OBTAINED. ABNORMAL LAB VALUES INCLUDED THE FOLLOWING: WBC 2.5, RBC 2.85, HGB 10.5, HCT 30.7, PLT COUNT 96, POTASSIUM 3.4, BUN 5, CALCIUM 7.6, TOTAL BILI 1.70, AST 89, ALK PHOS 262, ALBUMIN 2.2. A CHEST CTA WITH CONTRAST WAS OBTAINED AON ADMISSION AND REVEALED: No evidence of central pulmonary embolus. However, the pulmonary arterial branches distal to the 2nd order branches cannot be adequately assessed due to suboptimal opacification. If concern for acute pulmonary embolus persists, correlation nuclear medicine ventilation perfusion study would be beneficial. AN ECHO WAS OBTAINED AND REVEALED AN EJECTION FRACTION OF 75%. EKG REVEALED SINUS RHYTHM WITH HR 72. TODAY, WE PLANNED TO OBTAIN AN ABDOMEN/PELVIS CT WITH CONTRAST, OBTAIN STOOLS FOR OCCULT BLOOD, MONITOR H&H Q4H AND TRANSFUSE IF LESS THAN 9. WE STARTED ALBUMIN 25% IV DAILY, TPN, PEPCID AND PROTONIX IV, LIBRAX TID PRN FOR DIARRHEA, AND GI COCKTAIL. WE FOLLOWED UP WITH AM LABS AND CONTINUED TO MONITOR. DAY THREE, PATIENT CONTINUED TO RECEIVE TREATMENT FOR ADMISSION DIAGNOSIS. VITALS WERE T-97.9, P-94, R-29, O2 SAT. 98%, BP-124/82. ABNORMAL LAB GREER INCLUDED WBC 2.9, RBC 2.58, HGB 10.0. HCT 28.6, MCV 111.2, MCH 38.7, RDW 18.0, PLT COUNT 107.0, BUN 5, CALCIUM 8.1, TOTAL BILIRUBIN 1.60, AST 84, ALKALINE PHOSPHATASE 224, ALBUMIN 2.6, A/G RATIO 0.6. WE CONTINUED WITH CURRENT PLAN OF TREATMENT. DAY FOUR. PATIENT RESTING QUIETLY IN BED. NO COMPLAINTS NOTED AT THIS TIME. LUNGS WERE NOTED TO BE CLEAR ON AUSCULTATION. VITALS WERE T-98.9, P-82, R-24, O2 SAT. 97%, BP-124/70. ABNORMAL LABS INCLUDED WBC 2.9, RBC 2.70, HGB 10.4, HCT 30.1, MCV 111.4, MCH 38.4, RDW 18.1, PLT COUNT 146.0, SODIUM 132, BUN 6, TOTAL BILIRUBIN 2.10, AST 66, ALKALINE PHOSPHATASE 204, ALBUMIN 2.6, A/G RATIO 0.6. WE PLANNED TO CONTINUE WITH CURRENT TREATMENT AND CONTINUED TO MONITOR PATIENT. LABS WERE TO BE REPEATED IN THE AM. DAY FOUR. PATIENT'S HGB DECREASED TO 8.8. TWO UNITS OF PRBC WERE TRANSFUSED. HGB INCREASED TO 11.4. TOTAL BILIRUBIN DECREASED TO 1.6. PATIENT VOICED NO COMPLAINTS DURING ROUNDS. PATIENT REPORTED SYMPTOMS HAVE IMPROVED. WE PLANNED FOR DISCHARGE. INSTRUCTIONS FOR MEDICATIONS AND FOLLOW UP WERE DISCUSSED WITH PATIENT AND FAMILY, BOTH VOICED UNDERSTANDING. PATIENT WAS DISCHARGED HOME IN STABLE CONDITION WITH FAMILY. - Discharge Medications Discharge Medications: Home Medication List One Daily For Men 50+ Advanced 1 tab PO HS 04/30/18 [History] lansoprazole [Prevacid] 60 mg PO BID 04/30/18 [History] chlordiazepoxide-clidinium [Librax (with clidinium)] 1 cap PO TID PRN #30 cap 05/04/18 [Rx] pantoprazole [Protonix] 40 mg PO BID #60 tab 05/04/18 [Rx] Prescriptions: chlordiazepoxide-clidinium [Librax (with clidinium)] Escobar Alonzo pantoprazole [Protonix] Escobar Alonzo Ambulatory Orders Black He Extract 500 mg PO HS 05/20/17 [place]-3S/Dha/Epa/Fish Oil [Fish Oil 1,200 mg Softgel] 1,200 mg PO HS 05/20/17 alprazolam [Xanax] 1 mg PO TID PRN 05/20/17 amlodipine 10 mg PO HS 05/20/17 milk thistle 1,000 mg PO BID 05/20/17 oxycodone-acetaminophen [Percocet] 1 tab PO .Q4-6HR PRN 05/20/17 propranolol 20 mg PO HS 05/20/17 he-nzxi-[id number]-lycopene-ginkgo [One Daily For Men 50+ Advanced] 1 tab PO HS 04/30/18 - Discharge Disposition Discharge Disposition: PATIENT TO FOLLOW UP IN OUR OFFICE IN ONE WEEK. PATIENT TO FOLLOW UP WITH DR. EUBANKS ON THE NEXT AVAILABLE APPOINTMENT TIME.
== END 2018-05-04 19:35 | disposition home or self-care (01) | DRG 204 ==
LOC: ICU
PROVIDERS: ADMIT Internal Medicine; ATTEND Internal Medicine
CPT/HCPCS: 36415; 36430; 70490; 71010; 71045; 71275; 74177; 80053; 81001; 82270; 82550; 82553; 83735; 84132; 84134; 84484; 85014; 85018; 85025; 86850; 86900; 86901; 86922; 93005; 93306; 94640; 97110; 97116; 97163; 97166; 97530; 99231; A4222; B5200; C9113; J7030; P9016; P9047; S0028; G0378; J1200; J2405; J3475; J3490; J7040; J7050; J7620

== ENCOUNTER 2018-08-15 08:48 | Observation (INO) ==
[2018-08-15 09:02] VITALS: BMI 26.6
--- NOTE | 2018-08-15 10:57 | RAD ---
Examination: AP chest History: Hurts when he breathes Comparison 05/03/2018 Findings: Continued normal heart size with stable position of aortic stent graft. Clear left lung with multiple healed rib fracture deformities. Acute infiltrate in the right lower lobe. No discrete mass or pleural fluid. Impression: Findings consistent with right lower lung pneumonia. Follow-up suggested. Reported By:
[2018-08-15 11:03] LABS: BASOPHILS % (AUTO) 0.2 % (0.2-1.0); HEMATOCRIT 47.1 % (42.0-54.0); HEMOGLOBIN 16.5 g/dL (13.5-18.0); LYMPHOCYTES # (AUTO) 0.6 X10^3/uL (1.3-2.9); LYMPHOCYTES % (AUTO) 7.9 % (21.0-51.0); MEAN CORPUSCULAR HEMOGLOBIN 33.6 pg (27.0-34.0); MEAN CORPUSCULAR HGB CONC 35.1 g/dL (33.0-35.0); MEAN CORPUSCULAR VOLUME 95.7 fL (80.0-100.0); MONOCYTES # (AUTO) 0.6 x10^3/uL (0.3-0.8); MONOCYTES % (AUTO) 7.7 % (0.0-13.0); NEUTROPHILS # (AUTO) 6.2 x10^3/uL (2.2-4.8); NEUTROPHILS % (AUTO) 84.2 % (42.0-75.0); PLATELET COUNT 123 X10^3/uL (150.0-450.0); RED BLOOD COUNT 4.92 X10^6/uL (4.7-6.0); RED CELL DISTRIBUTION WIDTH 16.4 % (11.6-16.5); WHITE BLOOD COUNT 7.3 X10^3/uL (3.6-10.0)
[2018-08-15 11:12] LABS: ALANINE AMINOTRANSFERASE 49 Units/L (12-78); ALBUMIN 3.6 g/dL (3.4-5.0); ALKALINE PHOSPHATASE 112 Units/L (46-116); ASPARTATE AMINO TRANSFERASE 48 Units/L (15-37); BLOOD UREA NITROGEN 12 mg/dL (7-18); CALCIUM 8.5 mg/dL (8.5-10.1); CARBON DIOXIDE 25.3 mmol/L (21-32); CHLORIDE 96 mmol/L (98-107); COR NA(FOR HYPERGLY) 134 mmol/L (136-145); CREATININE 1.08 mg/dL (0.70-1.30); SODIUM 134 mmol/L (136-145); TOTAL PROTEIN 7.6 g/dL (6.4-8.2); eGFR NON BLACK RACES > 60 (>60)
[2018-08-15] MEDS ORDERED: DUONEB 0.5 MG/3 MG ONE (11:17)
[2018-08-15] MEDS ORDERED: DUONEB 0.5 MG/3 MG NEB ONE (11:18)
[2018-08-15] MEDS ORDERED: NS 250 ML IV 250 ML IV ONE (11:46)
[2018-08-15] MEDS ORDERED: NS 1/2 1000 ML IV 1,000 ML IV ONE (12:03)
[2018-08-15] MEDS ORDERED: LEVAQUIN PREMIX IV 750 MG 750 MG/150 ML BAG IV ONE (12:04)
--- NOTE | 2018-08-15 12:04 | DR.GENAD ---
HPI Time Seen Time Seen by Provider: 08/15/18 09:48 PCP Primary Care Physician: CELIA Complaint/Symptoms Chief Complaint:: PT HAS BEEN FALLING AT HOME. FELL FRIDAY AND FRIDAY.FRIDAY WHEN HE FELL HE BUSTED HIS NOSE. LAST NIGHT HE COULDN'T RECALL WHAT HAD HAPPEN TO HIM. STARTED HAVING TROUBLE BREAHTING. HURTS WHEN HE BREATHES AND CAN'T TAKE DEEP BREATHE Source History Provided: Patient and Family Member Mode of Arrival Mode of Arrival: Wheelchair Timing Onset of Chief Complaint: 08/12/18 PMH PMH Past Medical History: Yes Past Medical History: Anxiety and Hypertension Past Surgical History: Yes Surgical History: AAA Repair, CABG/Valve Surgery, Ortho Surgery and Other Family History History of Family Medical Conditions: Yes Family Medical History: Cancer and Hypertension Social History Does any household member use tobacco: No Alcohol Use: Occasionally Do you use any recreational Drugs:: No Lives With: Spouse Lives Where: Home infectious screening In the last 2 months have you had wt loss of >10#?: NO Have you had fever, night sweats or hemotysis?: No Have you traveled outside the country in the last 6 months?: No Isolation: Standard PE Vital Signs Vitals: Temperature 98.3 F Pulse Rate 112 Respiratory Rate 20 Blood Pressure [Right Arm] 124/82 Blood Pressure 130/74 O2 Sat by Pulse Oximetry 89 General Limitations: No Limitations and Language Barrier General Appearance: Alert, In No Apparent Distress and Anxious Head Head Exam: Normal Inspection, Atraumatic and Normocephalic Eyes Eye exam: Normal Appearance, PERRL and EOMI ENT ENT Exam: Normal Exam and Normal Oropharynx External Ear Exam: Normal External Inspection and Auricular Hematoma TM/Canal Exam: Bilateral: Normal Nose Exam: Normal Nose Exam Mouth Exam: Normal Inspection Throat Exam: Normal Inspection and Tonsillar Erythema Neck Neck Exam: Normal Inspection and Full ROM Chest Chest Inspection: Normal Inspection and Symmetric Chest Wall Rise Respiratory Respiratory Exam: Bilateral: Rhonchi Cardiovascular Cardiovascular Exam: Regular Rate and Normal Rhythm Abdominal Exam Abdominal Exam: Normal Inspection, Normal Bowel Sounds and Soft Abdominal Tenderness: RUQ and RLQ Extremities Extremities Exam: Normal Inspection and Full ROM Back Back Exam: Normal Inspection Neurologic Neurological Exam: Alert, Oriented X3 and CN II-XII Intact Psychiatric Psychiatric Exam: Normal Affect and Normal Mood Skin Skin Exam: Warm, Dry and Intact COURSE Consultation Called: 11:55 Consultation Comments: Dr. Fuentes agreed to admit for further treatment of acute RLL pneumonia ROR Labs Reviewed Laboratory Results Reviewed?: Yes Result Diagrams: 08/15/18 10:50 08/15/18 10:50 Laboratory: WBC 7.3 X10^3/uL (3.6-10.0) 08/15/18 10:50 RBC 4.92 X10^6/uL (4.7-6.0) 08/15/18 10:50 Hgb 16.5 g/dL (13.5-18.0) 08/15/18 10:50 Hct 47.1 % (42.0-54.0) 08/15/18 10:50 MCV 95.7 fL (80.0-100.0) 08/15/18 10:50 MCH 33.6 pg (27.0-34.0) 08/15/18 10:50 MCHC 35.1 g/dL (33.0-35.0) H 08/15/18 10:50 RDW 16.4 % (11.6-16.5) 08/15/18 10:50 Plt Count 123 X10^3/uL (150.0-450.0) L 08/15/18 10:50 MPV 7.0 fL (7.4-11.0) L 08/15/18 10:50 Neut % (Auto) 84.2 % (42.0-75.0) H 08/15/18 10:50 Lymph % (Auto) 7.9 % (21.0-51.0) L 08/15/18 10:50 [place] % (Auto) 7.7 % (0.0-13.0) 08/15/18 10:50 Eos % (Auto) 0.0 % (0.9-2.9) L 08/15/18 10:50 Baso % (Auto) 0.2 % (0.2-1.0) 08/15/18 10:50 Neut # (Auto) 6.2 x10^3/uL (2.2-4.8) H 08/15/18 10:50 Lymph # (Auto) 0.6 X10^3/uL (1.3-2.9) L 08/15/18 10:50 [place] # (Auto) 0.6 x10^3/uL (0.3-0.8) 08/15/18 10:50 Eos # (Auto) 0.0 x10^3/uL (0.0-0.2) 08/15/18 10:50 Baso # (Auto) 0.0 X10^3/uL (0.0-0.1) 08/15/18 10:50 Absolute Nucleated RBC 0.1 /100WBC 08/15/18 10:50 D-Dimer 453 ng/mL (0-400) H* 08/15/18 10:50 Sodium 134 mmol/L (136-145) L 08/15/18 10:50 Corrected Sodium 134 mmol/L (136-145) L 08/15/18 10:50 Potassium 4.0 mmol/L (3.5-5.1) 08/15/18 10:50 Chloride 96 mmol/L (98-107) L 08/15/18 10:50 Carbon Dioxide 25.3 mmol/L (21-32) 08/15/18 10:50 BUN 12 mg/dL (7-18) 08/15/18 10:50 Creatinine 1.08 mg/dL (0.70-1.30) 08/15/18 10:50 Est GFR (MDRD) Af Amer > 60 (>60) 08/15/18 10:50 Est GFR (MDRD) Non-Af > 60 (>60) 08/15/18 10:50 Glucose 118 mg/dL (65-99) H 08/15/18 10:50 Lactic Acid 1.4 mmol/L (0.4-2.0) 08/15/18 11:50 Calcium 8.5 mg/dL (8.5-10.1) 08/15/18 10:50 Corrected Calcium TNP 08/15/18 10:50 Total Bilirubin 0.90 mg/dL (0.2-1.0) 08/15/18 10:50 AST 48 Units/L (15-37) H 08/15/18 10:50 ALT 49 Units/L (12-78) 08/15/18 10:50 Alkaline Phosphatase 112 Units/L (46-116) 08/15/18 10:50 C-Reactive Protein 62.60 mg/L (0-3.0) H 08/15/18 10:50 Total Protein 7.6 g/dL (6.4-8.2) 08/15/18 10:50 Albumin 3.6 g/dL (3.4-5.0) 08/15/18 10:50 Globulin 4.0 g/dL (2.5-4.5) 08/15/18 10:50 Albumin/Globulin Ratio 0.9 Ratio (1.1-2.1) L 08/15/18 10:50 Influenza Type A (PCR) Negative (NEGATIVE) 08/15/18 11:13 Influenza Type B (PCR) Negative (NEGATIVE) 08/15/18 11:13 Other Results Comments: Chest; Continued normal heart size with stable position of aortic stent graft. Clear left lung with multiple healed rib fracture deformities. Acute infiltrate in the right lower lobe. No discrete mass or pleural effusion. XRAY XRAY Interpreted by: Radiologist Diagnosis Discharge Problem: RLL pneumonia Qualifiers: Pneumonia type: due to unspecified organism Qualified Code(s): J18.1 - Lobar pneumonia, unspecified organism
[2018-08-15] MEDS ORDERED: TUSSIONEX PENNKINETIC SUSP PO PRN (12:20)
[2018-08-15] MEDS: NS 1/2 1000 ML IV 1,000 ML IV SCH (12:26)
[2018-08-15] MEDS: LEVAQUIN PREMIX IV 750 MG 750 MG/150 ML BAG IV SCH (12:27)
--- NOTE | 2018-08-15 12:28 | CT ---
CTA chest with contrast per pulmonary embolism protocol Indication: Difficulty breathing with frequent falls Comparison: Chest radiograph performed on same day and CT on 04/30/2018 Technique: Multiple axial images of the chest were obtained from the thoracic inlet to the upper abdomen after the administration of IV contrast.Coronal and Sagittal MIP images were also provided. Findings: There is suboptimal opacification of the pulmonary arteries secondary to contrast bolus timing. The lower lobe subsegmental branches of the pulmonary arteries are suboptimally opacified and it is not possible to exclude small distal subsegmental pulmonary thromboembolism by this examination. The main and segmental pulmonary arteries demonstrate normal opacification . The thyroid gland is unremarkable. Heart size is normal without pericardial effusion. The thoracic aorta is normal in caliber and contour. Descending thoracic aortic stent is noted without complication. No periaortic hematoma or stranding. No enlarged mediastinal or hilar lymph nodes. Esophagus is within normal limits. Dense airspace consolidation is noted throughout the entire right lung and left lower lobe most severely affecting the right and left lower lobes consistent with multi focal pneumonia. Scattered ground-glass opacities are also noted be present within the left upper lobe. No acute osseous abnormality identified. Multiple chronic, healed fracture deformities within the left posterior ribs are noted to be present similar prior exam. IMPRESSION: 1. Limited evaluation for pulmonary thromboembolism given contrast bolus timing. Given suboptimal opacification within the subsegmental branches of the right and left lower lobe it would not be possible to exclude small subsegmental pulmonary thromboembolism. There is no main or segmental pulmonary thromboembolism identified. No pulmonary arterial dilatation or ventricular heart strain. 2. Dense multifocal pneumonia throughout both lungs most severely affecting the right and left lower lobe. 3. Previous descending thoracic aortic metallic stent without evidence of acute aortic syndrome or aneurysmal dilatation. 4. Refer to above for other incidental, chronic findings Reported By:
--- NOTE | 2018-08-15 14:03 | DR.GENAD ---
HPI Time Seen Time Seen by Provider: 08/15/18 09:48 PCP Primary Care Physician: CELIA Complaint/Symptoms Chief Complaint:: PT HAS BEEN FALLING AT HOME. FELL FRIDAY AND FRIDAY.FRIDAY WHEN HE FELL HE BUSTED HIS NOSE. LAST NIGHT HE COULDN'T RECALL WHAT HAD HAPPEN TO HIM. STARTED HAVING TROUBLE BREAHTING. HURTS WHEN HE BREATHES AND CAN'T TAKE DEEP BREATHE Source History Provided: Patient and Family Member Mode of Arrival Mode of Arrival: Wheelchair Timing Onset of Chief Complaint: 08/12/18 PMH PMH Past Medical History: Yes Past Medical History: Anxiety and Hypertension Past Surgical History: Yes Surgical History: AAA Repair, CABG/Valve Surgery, Ortho Surgery and Other Family History History of Family Medical Conditions: Yes Family Medical History: Cancer and Hypertension Social History Does any household member use tobacco: No Alcohol Use: Occasionally Do you use any recreational Drugs:: No Lives With: Spouse Lives Where: Home infectious screening In the last 2 months have you had wt loss of >10#?: NO Have you had fever, night sweats or hemotysis?: No Have you traveled outside the country in the last 6 months?: No Isolation: Standard PE Vital Signs Vitals: Temperature 98.3 F Pulse Rate 112 Respiratory Rate 20 Blood Pressure [Right Arm] 124/82 Blood Pressure 130/74 O2 Sat by Pulse Oximetry 89 General Limitations: No Limitations and Language Barrier General Appearance: Alert and In No Apparent Distress Head Head Exam: Normal Inspection, Atraumatic and Normocephalic Eyes Eye exam: Normal Appearance, PERRL and EOMI ENT ENT Exam: Normal Exam and Normal Oropharynx External Ear Exam: Normal External Inspection TM/Canal Exam: Bilateral: Normal Nose Exam: Normal Nose Exam and Sinus Tenderness Mouth Exam: Normal Inspection Throat Exam: Normal Inspection Neck Neck Exam: Normal Inspection Chest Chest Inspection: Normal Inspection and Symmetric Chest Wall Rise Respiratory Respiratory Exam: Normal Lung Sounds Bilat and Accessory Muscle Use Respiratory Exam: Bilateral: Clear to Auscultation Cardiovascular Cardiovascular Exam: Regular Rate, Normal Rhythm and Bradycardia Abdominal Exam Abdominal Exam: Normal Inspection, Normal Bowel Sounds and Soft Abdominal Tenderness: RUQ, RLQ and LUQ Back Back Exam: Normal Inspection and Full ROM Neurologic Neurological Exam: Alert, Oriented X3 and CN II-XII Intact Psychiatric Psychiatric Exam: Normal Affect and Normal Mood Skin Skin Exam: Warm, Dry and Intact COURSE Reevaluation 1st: Unchanged Consultation Called: 13:50 Consultation Comments: Dr. Fuentes consulted; agreed to admit for further treatment of RLL pneumonia ROR Labs Reviewed Laboratory Results Reviewed?: Yes Result Diagrams: 08/15/18 10:50 08/15/18 10:50 Laboratory: WBC 7.3 X10^3/uL (3.6-10.0) 08/15/18 10:50 RBC 4.92 X10^6/uL (4.7-6.0) 08/15/18 10:50 Hgb 16.5 g/dL (13.5-18.0) 08/15/18 10:50 Hct 47.1 % (42.0-54.0) 08/15/18 10:50 MCV 95.7 fL (80.0-100.0) 08/15/18 10:50 MCH 33.6 pg (27.0-34.0) 08/15/18 10:50 MCHC 35.1 g/dL (33.0-35.0) H 08/15/18 10:50 RDW 16.4 % (11.6-16.5) 08/15/18 10:50 Plt Count 123 X10^3/uL (150.0-450.0) L 08/15/18 10:50 MPV 7.0 fL (7.4-11.0) L 08/15/18 10:50 Neut % (Auto) 84.2 % (42.0-75.0) H 08/15/18 10:50 Lymph % (Auto) 7.9 % (21.0-51.0) L 08/15/18 10:50 [place] % (Auto) 7.7 % (0.0-13.0) 08/15/18 10:50 Eos % (Auto) 0.0 % (0.9-2.9) L 08/15/18 10:50 Baso % (Auto) 0.2 % (0.2-1.0) 08/15/18 10:50 Neut # (Auto) 6.2 x10^3/uL (2.2-4.8) H 08/15/18 10:50 Lymph # (Auto) 0.6 X10^3/uL (1.3-2.9) L 08/15/18 10:50 [place] # (Auto) 0.6 x10^3/uL (0.3-0.8) 08/15/18 10:50 Eos # (Auto) 0.0 x10^3/uL (0.0-0.2) 08/15/18 10:50 Baso # (Auto) 0.0 X10^3/uL (0.0-0.1) 08/15/18 10:50 Absolute Nucleated RBC 0.1 /100WBC 08/15/18 10:50 D-Dimer 453 ng/mL (0-400) H* 08/15/18 10:50 Sodium 134 mmol/L (136-145) L 08/15/18 10:50 Corrected Sodium 134 mmol/L (136-145) L 08/15/18 10:50 Potassium 4.0 mmol/L (3.5-5.1) 08/15/18 10:50 Chloride 96 mmol/L (98-107) L 08/15/18 10:50 Carbon Dioxide 25.3 mmol/L (21-32) 08/15/18 10:50 BUN 12 mg/dL (7-18) 08/15/18 10:50 Creatinine 1.08 mg/dL (0.70-1.30) 08/15/18 10:50 Est GFR (MDRD) Af Amer > 60 (>60) 08/15/18 10:50 Est GFR (MDRD) Non-Af > 60 (>60) 08/15/18 10:50 Glucose 118 mg/dL (65-99) H 08/15/18 10:50 Lactic Acid 1.4 mmol/L (0.4-2.0) 08/15/18 11:50 Calcium 8.5 mg/dL (8.5-10.1) 08/15/18 10:50 Corrected Calcium TNP 08/15/18 10:50 Total Bilirubin 0.90 mg/dL (0.2-1.0) 08/15/18 10:50 AST 48 Units/L (15-37) H 08/15/18 10:50 ALT 49 Units/L (12-78) 08/15/18 10:50 Alkaline Phosphatase 112 Units/L (46-116) 08/15/18 10:50 C-Reactive Protein 62.60 mg/L (0-3.0) H 08/15/18 10:50 Total Protein 7.6 g/dL (6.4-8.2) 08/15/18 10:50 Albumin 3.6 g/dL (3.4-5.0) 08/15/18 10:50 Globulin 4.0 g/dL (2.5-4.5) 08/15/18 10:50 Albumin/Globulin Ratio 0.9 Ratio (1.1-2.1) L 08/15/18 10:50 Influenza Type A (PCR) Negative (NEGATIVE) 08/15/18 11:13 Influenza Type B (PCR) Negative (NEGATIVE) 08/15/18 11:13 Other Results Comments: RLL pneumonia Diagnosis Discharge Problem: RLL pneumonia Qualifiers: Pneumonia type: due to unspecified organism Qualified Code(s): J18.1 - Lobar pneumonia, unspecified organism ADDITIONAL NOTES Additional Notes Additional Notes: Levaquin IV
[2018-08-15] MEDS ORDERED: TYLENOL 325 MG TAB PO PRN (15:47)
[2018-08-15] MEDS ORDERED: TYLENOL 325 MG TAB PO ONE (16:17)
[2018-08-15] MEDS: ROBITUSSIN DM PO SCH ×3 (17:01→20:36)
[2018-08-15] MEDS ORDERED: XANAX PO PRN (18:05)
[2018-08-15] MEDS ORDERED: PATIENT'S HOME MEDICATION (Oxycodone-Acetaminophen [Percocet] 1 TAB) PO PRN (18:05)
[2018-08-15] MEDS: MILK THISTLE 1000 MG PO SCH ×2 (19:42→21:40)
[2018-08-15] MEDS: PREVACID PO SCH ×2 (19:44→21:40)
[2018-08-15] MEDS ORDERED: PHARMACY CONSULT - DOSE _____ XX SCH (20:00)
[2018-08-15] MEDS ORDERED: ROXICODONE TAB 5 MG PO PRN (20:16)
[2018-08-15] MEDS: MAALOX or MYLANTA PO PRN (20:36)
[2018-08-15] MEDS ORDERED: EPA PO SCH (21:00)
[2018-08-15] MEDS ORDERED: [UNRECOGNIZED DRUG - OTHER] PO SCH (21:00)
[2018-08-15] MEDS ORDERED: INDERAL TAB 10 MG PO SCH (21:00)
[2018-08-15] MEDS ORDERED: DHA PO SCH (21:00)
[2018-08-15] MEDS ORDERED: FISH OIL PO SCH (21:00)
[2018-08-15] MEDS ORDERED: NORVASC TAB 10 MG PO SCH (21:00)
[2018-08-15] MEDS ORDERED: BLACK CHERRY EXTRACT PO SCH (21:00)
[2018-08-15] MEDS ORDERED: OMEGA PO SCH (21:00)
[2018-08-15] MEDS: XOPENEX 1.25 MG/3 ML NEBULE NEB SCH (21:27)
[2018-08-16] MEDS: XOPENEX 1.25 MG/3 ML NEBULE NEB SCH ×4 (00:10→17:04)
[2018-08-16] MEDS ORDERED: NS 1/2 1000 ML IV 1,000 ML IV ONE ×2 (02:49→16:29)
[2018-08-16] MEDS: NS 1/2 1000 ML IV 1,000 ML IV SCH ×2 (03:30→16:33)
[2018-08-16] MEDS: ROBITUSSIN DM PO SCH ×4 (08:07→20:33)
[2018-08-16] MEDS: LEVAQUIN PREMIX IV 750 MG 750 MG/150 ML BAG IV SCH (08:07)
[2018-08-16] MEDS ORDERED: ZyrTEC TAB 10 MG PO SCH ×2 (09:00→18:00)
[2018-08-16] MEDS ORDERED: PERCOCET TAB 5/325 MG PO PRN (09:00)
[2018-08-16 09:22] LABS: BASOPHILS % (AUTO) 0.1 % (0.2-1.0); EOSINOPHILS % (AUTO) 0.4 % (0.9-2.9); HEMATOCRIT 41.8 % (42.0-54.0); HEMOGLOBIN 14.6 g/dL (13.5-18.0); LYMPHOCYTES # (AUTO) 0.9 X10^3/uL (1.3-2.9); LYMPHOCYTES % (AUTO) 14.3 % (21.0-51.0); MEAN CORPUSCULAR HEMOGLOBIN 33.6 pg (27.0-34.0); MEAN PLATELET VOLUME 7.4 fL (7.4-11.0); MONOCYTES # (AUTO) 0.5 x10^3/uL (0.3-0.8); MONOCYTES % (AUTO) 7.1 % (0.0-13.0); NEUTROPHILS % (AUTO) 78.1 % (42.0-75.0); PLATELET COUNT 117 X10^3/uL (150.0-450.0); RED BLOOD COUNT 4.35 X10^6/uL (4.7-6.0); RED CELL DISTRIBUTION WIDTH 16.4 % (11.6-16.5); WHITE BLOOD COUNT 6.4 X10^3/uL (3.6-10.0)
[2018-08-16 09:32] LABS: ALANINE AMINOTRANSFERASE 43 Units/L (12-78); ALKALINE PHOSPHATASE 90 Units/L (46-116); ASPARTATE AMINO TRANSFERASE 34 Units/L (15-37); BLOOD UREA NITROGEN 7 mg/dL (7-18); CALCIUM 8.8 mg/dL (8.5-10.1); CHLORIDE 99 mmol/L (98-107); COR CA(FOR HYPOALB) 9.6 mg/dL (8.5-10.1); COR NA(FOR HYPERGLY) 137 mmol/L (136-145); CREATININE 1.02 mg/dL (0.70-1.30); SODIUM 135 mmol/L (136-145); TOTAL PROTEIN 6.9 g/dL (6.4-8.2); eGFR NON BLACK RACES > 60 (>60)
[2018-08-16] MEDS: LOVAZA PO SCH ×2 (10:06→17:22)
[2018-08-16] MEDS ORDERED: PHENERGAN INJ 25 MG ONE (10:41)
[2018-08-16] MEDS: PHENERGAN INJ 25 MG IV PRN (10:56)
--- NOTE | 2018-08-16 12:52 | DR.H&P ---
H&P - History & Physical for Day of: H&P Date: 08/15/18 - Chief Complaint Chief Complaint: SOB - History of Present Illness History of Present Illness: 53 WM ER ADMISSION AFTER PRESENTING WITH SPOUSE CO PT HAS BEEN FALLING AT HOME. FELL FRIDAY AND FRIDAY.FRIDAY WHEN HE FELL HE BUSTED HIS NOSE. LAST NIGHT HE COULDN'T RECALL WHAT HAD HAPPEN TO HIM. STARTED HAVING TROUBLE BREAHTING. HURTS WHEN HE BREATHES AND CAN'T TAKE DEEP BREATHE. PT HAS PMH OF HTN, OA, [place]. PT HAD CTA CHEST IN ER WITH MULTI FOCAL PNEUMONIA. PT ADMITTED FOR PNEUMONIA PROTOCOL. - Past Medical History Past Medical History: Anxiety, Arthritis, Hypertension - Past Surgical History Surgical History: AAA Repair, CABG/Valve Surgery, Ortho Surgery, Other - Family History Family Medical History: Cancer, Hypertension - Social History Does patient currently use any type of tobacco product: No Have you used tobacco products in the last 12 months: No Type of Tobacco Use: None Does any household member use tobacco: No Alcohol Use: None Drug Use: None - Medications Home Medications: escitalopram [From Lexapro] Allergy (Verified 04/30/18 12:52) antidepressants Allergy (Uncoded 07/22/16 18:32) CONTINUE taking the following medications cetirizine 10 mg PO DAILY 08/15/18 [History] ferrous sulfate [Iron (ferrous sulfate)] 325 mg PO QDAY 08/15/18 [History] - Review of Systems Constitutional: Weakness Eyes: No Symptoms Reported ENT: No Symptoms Reported Respiratory: Shortness of Breath, SOB with Excertion Cardiovascular: No Symptoms Reported Gastrointestinal: No Symptoms Reported Genitourinary: No Symptoms Reported Musculoskeletal: Back Pain, Leg Pain Skin: No Symptoms Reported Neurological: Weakness - Physical Exam Vital Signs: Temperature 98.5 F Pulse Rate [Right Brachial] 88 Pulse Rate [Bilateral Brachial 89 ] Pulse Rate 96 Respiratory Rate 20 Blood Pressure [Right Arm] 123/72 Blood Pressure 130/74 O2 Sat by Pulse Oximetry 95 Oriented: Normal Eyes: Normal Ear: Normal Nose: Normal Throat: Normal Respiratory: RLL Diminished, LLL Diminished Cardiovascular: Normal : Normal Auscultation: Bowel Sounds: Normal Palpation: Normal Tenderness: Normal Skin: Bruising (TO NASAL BRIDGE) Psychiatric: Anxiety Affect: Anxious Speech Pattern: Clear, Appropriate - Assessment/Plan (1) Multifocal pneumonia Status: Acute Plan: ADMIT, PNEUMONIA PROTOCOL. CTA OF CHEST OBTAINED IN ER. CONTINUE RESP THERAPY, IV ATBX, SUPPLEMENTAL O2. ENCOURAGE ORAL HYDRATION. VERIFY HOME MEDICATION, PAIN CONTROL, ENCOURAGE SPUTUM PRODUCTION, FALL RISK (2) Breath shortness Status: Acute (3) Gastroesophageal reflux disease Status: Chronic (4) Generalized anxiety disorder Status: Chronic (5) Respiratory distress Status: Acute (6) Essential hypertension Status: Chronic - Allergies Allergies/Adverse Reactions: Allergies Allergy/AdvReac Type Severity Reaction Status Date / Time escitalopram [From Lexapro] Allergy Verified 04/30/18 12:52 antidepressants Allergy Uncoded 07/22/16 18:32
--- NOTE | 2018-08-16 12:54 | PCM.PROG ---
Progress Note - Progress Note for Day of Date of Exam: 08/16/18 - Subjective Subjective: 53 WM ER ADMISSION ON WITH CO SOB AND CTA WITH MULTI FOCAL PNEUMONIA. PT IS CURRENTLY ON PNEUMONIA PROTCOL WITH DUO NEBS AND SUPPLEMENTAL O2. RESUMED HOME MEDICATION, ENCOURAGE SPUTUM PRODUCTION, RT, CULTURE NOT COLLECTED AT THIS TIME. WILL REPEAT AM LABS. - Past Medical Family Social History Past Med/Fam/Surg Hx: No changes since H&P Allergies: Allergies escitalopram [From Lexapro] Allergy (Verified 04/30/18 12:52) antidepressants Allergy (Uncoded 07/22/16 18:32) - Review of Systems ROS: No change since H&P - Vital Signs and I&O's Vital Signs: Temperature 98.5 F Pulse Rate [Right Brachial] 88 Pulse Rate [Bilateral Brachial 89 ] Pulse Rate 96 Respiratory Rate 20 Blood Pressure [Right Arm] 123/72 Blood Pressure 130/74 O2 Sat by Pulse Oximetry 95 Intake and Output: Intake & Output 08/14/18 08/15/18 08/16/18 08/17/18 11:59 11:59 11:59 11:59 Intake Total 2325 / 2325 Output Total 900 / 900 Balance 1425 / 1425 - Physical Exam Oriented: Normal Eyes: Normal Ear: Normal Nose: Normal Throat: Normal Respiratory: Diminished, Wheezes Cardiovascular: Normal : Normal Auscultation: Bowel Sounds: Normal Tenderness: Normal Skin: Bruising (TO NASAL BRIDGE) Psychiatric: Anxiety Affect: Anxious Speech Pattern: Clear, Appropriate - Laboratory and Diagnostics Result Diagrams: 08/16/18 09:00 08/16/18 09:00 Labs: Laboratory WBC 6.4 X10^3/uL (3.6-10.0) 08/16/18 09:00 RBC 4.35 X10^6/uL (4.7-6.0) L 08/16/18 09:00 Hgb 14.6 g/dL (13.5-18.0) 08/16/18 09:00 Hct 41.8 % (42.0-54.0) L 08/16/18 09:00 MCV 96.0 fL (80.0-100.0) 08/16/18 09:00 MCH 33.6 pg (27.0-34.0) 08/16/18 09:00 MCHC 35.0 g/dL (33.0-35.0) 08/16/18 09:00 RDW 16.4 % (11.6-16.5) 08/16/18 09:00 Plt Count 117 X10^3/uL (150.0-450.0) L 08/16/18 09:00 MPV 7.4 fL (7.4-11.0) 08/16/18 09:00 Neut % (Auto) 78.1 % (42.0-75.0) H 08/16/18 09:00 Lymph % (Auto) 14.3 % (21.0-51.0) L 08/16/18 09:00 [place] % (Auto) 7.1 % (0.0-13.0) 08/16/18 09:00 Eos % (Auto) 0.4 % (0.9-2.9) L 08/16/18 09:00 Baso % (Auto) 0.1 % (0.2-1.0) L 08/16/18 09:00 Neut # (Auto) 5.0 x10^3/uL (2.2-4.8) H 08/16/18 09:00 Lymph # (Auto) 0.9 X10^3/uL (1.3-2.9) L 08/16/18 09:00 [place] # (Auto) 0.5 x10^3/uL (0.3-0.8) 08/16/18 09:00 Eos # (Auto) 0.0 x10^3/uL (0.0-0.2) 08/16/18 09:00 Baso # (Auto) 0.0 X10^3/uL (0.0-0.1) 08/16/18 09:00 Absolute Nucleated RBC 0.0 /100WBC 08/16/18 09:00 D-Dimer 453 ng/mL (0-400) H* 08/15/18 10:50 Sodium 135 mmol/L (136-145) L 08/16/18 09:00 Corrected Sodium 137 mmol/L (136-145) 08/16/18 09:00 Potassium 3.6 mmol/L (3.5-5.1) 08/16/18 09:00 Chloride 99 mmol/L (98-107) 08/16/18 09:00 Carbon Dioxide 28.0 mmol/L (21-32) 08/16/18 09:00 BUN 7 mg/dL (7-18) 08/16/18 09:00 Creatinine 1.02 mg/dL (0.70-1.30) 08/16/18 09:00 Est GFR (MDRD) Af Amer > 60 (>60) 08/16/18 09:00 Est GFR (MDRD) Non-Af > 60 (>60) 08/16/18 09:00 Glucose 172 mg/dL (65-99) H 08/16/18 09:00 Lactic Acid 1.4 mmol/L (0.4-2.0) 08/15/18 11:50 Calcium 8.8 mg/dL (8.5-10.1) 08/16/18 09:00 Corrected Calcium 9.6 mg/dL (8.5-10.1) 08/16/18 09:00 Total Bilirubin 0.70 mg/dL (0.2-1.0) 08/16/18 09:00 AST 34 Units/L (15-37) 08/16/18 09:00 ALT 43 Units/L (12-78) 08/16/18 09:00 Alkaline Phosphatase 90 Units/L (46-116) 08/16/18 09:00 C-Reactive Protein 62.60 mg/L (0-3.0) H 08/15/18 10:50 Total Protein 6.9 g/dL (6.4-8.2) 08/16/18 09:00 Albumin 3.0 g/dL (3.4-5.0) L 08/16/18 09:00 Globulin 3.9 g/dL (2.5-4.5) 08/16/18 09:00 Albumin/Globulin Ratio 0.8 Ratio (1.1-2.1) L 08/16/18 09:00 Influenza Type A (PCR) Negative (NEGATIVE) 08/15/18 11:13 Influenza Type B (PCR) Negative (NEGATIVE) 08/15/18 11:13 - Plan (1) Multifocal pneumonia Status: Acute Plan: PNEUMONIA PROTOCOL. CTA OF CHEST OBTAINED IN ER. CONTINUE RESP THERAPY, IV ATBX, SUPPLEMENTAL O2. ENCOURAGE ORAL HYDRATION. VERIFY HOME MEDICATION, PAIN CONTROL, ENCOURAGE SPUTUM PRODUCTION, FALL RISK (2) Breath shortness Status: Acute (3) Gastroesophageal reflux disease Status: Chronic (4) Generalized anxiety disorder Status: Chronic (5) Respiratory distress Status: Acute (6) Essential hypertension Status: Chronic
[2018-08-16] MEDS: ROXICODONE TAB 5 MG PO PRN (13:55)
[2018-08-16] MEDS: PERCOCET TAB 5/325 MG PO PRN (13:55)
[2018-08-16] MEDS: BLACK CHERRY EXTRACT PO SCH (17:18)
[2018-08-16] MEDS: INDERAL TAB 10 MG PO SCH (17:21)
[2018-08-16] MEDS: MILK THISTLE 1000 MG PO SCH (17:21)
[2018-08-16] MEDS: NORVASC TAB 10 MG PO SCH (17:23)
[2018-08-16] MEDS: PREVACID PO SCH (17:23)
[2018-08-16] MEDS: ZyrTEC TAB 10 MG PO SCH (17:23)
[2018-08-16] MEDS ORDERED: HEMOCYTE-PLUS PO SCH ×2 (18:00)
[2018-08-17] MEDS: XOPENEX 1.25 MG/3 ML NEBULE NEB SCH ×4 (00:54→17:10)
[2018-08-17] MEDS ORDERED: NS 1/2 1000 ML IV 1,000 ML IV ONE ×2 (05:27→20:10)
[2018-08-17] MEDS: NS 1/2 1000 ML IV 1,000 ML IV SCH ×2 (06:16→20:23)
[2018-08-17 06:22] LABS: BASOPHILS % (AUTO) 0.5 % (0.2-1.0); EOSINOPHILS # (AUTO) 0.1 x10^3/uL (0.0-0.2); EOSINOPHILS % (AUTO) 1.2 % (0.9-2.9); HEMATOCRIT 42.2 % (42.0-54.0); HEMOGLOBIN 14.7 g/dL (13.5-18.0); LYMPHOCYTES # (AUTO) 1.2 X10^3/uL (1.3-2.9); LYMPHOCYTES % (AUTO) 28.1 % (21.0-51.0); MEAN CORPUSCULAR HEMOGLOBIN 33.7 pg (27.0-34.0); MEAN CORPUSCULAR HGB CONC 34.9 g/dL (33.0-35.0); MEAN CORPUSCULAR VOLUME 96.8 fL (80.0-100.0); MEAN PLATELET VOLUME 7.8 fL (7.4-11.0); MONOCYTES # (AUTO) 0.6 x10^3/uL (0.3-0.8); MONOCYTES % (AUTO) 12.8 % (0.0-13.0); NEUTROPHILS # (AUTO) 2.5 x10^3/uL (2.2-4.8); NEUTROPHILS % (AUTO) 57.4 % (42.0-75.0); PLATELET COUNT 123 X10^3/uL (150.0-450.0); RED BLOOD COUNT 4.35 X10^6/uL (4.7-6.0); RED CELL DISTRIBUTION WIDTH 16.7 % (11.6-16.5); WHITE BLOOD COUNT 4.4 X10^3/uL (3.6-10.0)
[2018-08-17 07:01] LABS: ALANINE AMINOTRANSFERASE 41 Units/L (12-78); ALBUMIN 3.2 g/dL (3.4-5.0); ALKALINE PHOSPHATASE 89 Units/L (46-116); ASPARTATE AMINO TRANSFERASE 30 Units/L (15-37); BLOOD UREA NITROGEN 8 mg/dL (7-18); CALCIUM 9.3 mg/dL (8.5-10.1); CARBON DIOXIDE 26.3 mmol/L (21-32); CHLORIDE 104 mmol/L (98-107); COR CA(FOR HYPOALB) 9.9 mg/dL (8.5-10.1); SODIUM 140 mmol/L (136-145); TOTAL PROTEIN 7.3 g/dL (6.4-8.2); eGFR NON BLACK RACES > 60 (>60)
--- NOTE | 2018-08-17 07:58 | RAD ---
HISTORY: Right lower lobe pneumonia Study: One-view chest Comparison: One-view chest 08/15/[address] scan 08/15/2018 which showed infiltrates mainly in the right lower lobe but also in the patchy in the right upper lobe. Technique: AP upright chest Findings: There are multiple old healed left posterior lateral left rib fractures with an old healed left clavicular fracture with 2 fixation plates in the distal left clavicle and lower C-spine anterior fusion plate. Endovascular stent is seen in the aortic arch and descending aorta. No acute osseous lesions are observed. The heart size and configuration are normal. The airway and vascularity are normal. The infiltrates that were present in the right lower and to a lesser extent the right upper lobe have resolved since 08/15/2018. There is chronic elevation the right hemidiaphragm. IMPRESSION: 1. Postsurgical chest and C-spine and clavicle. 2. No acute cardiopulmonary abnormalities with interval clearing of the infiltrates right lower and minimally in the right upper lobe. Reported By:
[2018-08-17] MEDS: ROXICODONE TAB 5 MG PO PRN (08:35)
[2018-08-17] MEDS: ROBITUSSIN DM PO SCH ×4 (08:35→20:20)
[2018-08-17] MEDS: PERCOCET TAB 5/325 MG PO PRN (08:35)
[2018-08-17] MEDS: LEVAQUIN PREMIX IV 750 MG 750 MG/150 ML BAG IV SCH (08:36)
[2018-08-17] MEDS: PHENERGAN INJ 25 MG IV PRN (09:30)
[2018-08-17] MEDS: TORADOL 30 MG VIAL IVP SCH ×3 (10:19→21:00)
[2018-08-17] MEDS: INDERAL TAB 10 MG PO SCH (17:16)
[2018-08-17] MEDS: PREVACID PO SCH (17:16)
[2018-08-17] MEDS: NORVASC TAB 10 MG PO SCH (17:16)
[2018-08-17] MEDS: ZyrTEC TAB 10 MG PO SCH (17:16)
[2018-08-17] MEDS: BLACK CHERRY EXTRACT PO SCH (17:17)
[2018-08-17] MEDS: MILK THISTLE 1000 MG PO SCH (17:18)
[2018-08-17] MEDS: LOVAZA PO SCH (17:18)
--- NOTE | 2018-08-17 20:34 | PCM.PROG ---
Progress Note - Progress Note for Day of Date of Exam: 08/17/18 - Subjective Subjective: WAS ADMITTED FOR LOWER LOBE PNEUMONIA. TODAY, HE IS ALERT AND ORIENTED, LYING IN BED ON MORNING ROUNDS. HE CONTINUES WITH COMPLAINTS OF COUGH, SHORTNESS OF BREATH, AND RIB PAIN. ON EXAMINATION, HEART IS REGULAR IN RATE AND RHYTHM. BILATERAL LUNGS ARE NOTED WITH SCATTERED WHEEZING. ABDOMEN IS ROUND, SOFT, AND NON-TENDER WITH NORMAL BOWEL SOUNDS NOTED IN ALL QUADRANTS. HIS VITLAS THIS MORNING ARE 98.7-79-20-96%-121/66. LABS WERE OBTAINED. ABNORMAL LAB VALUES INCLUDE THE FOLLOWING: RBC 4.35, PLT COUNT 123, GLUCOSE 107, ALBUMIN 3.2. BLOOD CULTURES PENDING. A CHEST XRAY WAS OBTAINED THIS MORNING AND REVEALED: Postsurgical chest and C-spine and clavicle. No acute cardiopulmonary abnormalities with interval clearing of the infiltrates right lower and minimally in the right upper lobe. HE IS CURRENTLY RECEIVING IV LEVAQUIN, RESPIRATORY TX, SUPPEMENTAL OXYGEN, AND HOME MEDICATIONS WERE RESUMED. TODAY, WE WILL START TORADOL 30MG IV Q6H KAREN. OTHERWISE, WE WILL FOLLOW UP WITH AM LABS AND CHEST XRAY AND CONTINUE TO MONITOR. - Past Medical Family Social History Past Med/Fam/Surg Hx: No changes since H&P Allergies: Allergies escitalopram [From Lexapro] Allergy (Verified 04/30/18 12:52) antidepressants Allergy (Uncoded 07/22/16 18:32) - Review of Systems ROS: No change since H&P - Vital Signs and I&O's Vital Signs: Temperature 99.0 F Pulse Rate [Left Brachial] 96 Pulse Rate [Right Brachial] 104 Pulse Rate [Bilateral Brachial 89 ] Pulse Rate 88 Respiratory Rate 18 Blood Pressure [Left Arm] 145/66 Blood Pressure [Right Arm] 112/57 Blood Pressure 130/74 O2 Sat by Pulse Oximetry 98 Intake and Output: Intake & Output 08/15/18 08/16/18 08/17/18 08/18/18 11:59 11:59 11:59 11:59 Intake Total 2325 / 2325 3760 / 3760 1275 / 1275 Output Total 900 / 900 400 / 400 Balance 1425 / 1425 3360 / 3360 1275 / 1275 - Physical Exam Oriented: Normal Eyes: Normal Ear: Normal Nose: Normal Throat: Normal Respiratory: Diminished, Wheezes Cardiovascular: Normal : Normal Auscultation: Bowel Sounds: Normal Palpation: Normal Tenderness: Normal Skin: Bruising (TO NASAL BRIDGE) Musculoskeletal: Normal Psychiatric: Anxiety Mood Description: Calm Affect: Anxious Speech Pattern: Clear, Appropriate - Laboratory and Diagnostics Result Diagrams: 08/17/18 05:18 08/17/18 05:18 Labs: 08/15/18 11:40 Blood Blood Culture - Preliminary 08/15/18 11:19 Blood Blood Culture - Preliminary Laboratory WBC 4.4 X10^3/uL (3.6-10.0) 08/17/18 05:18 RBC 4.35 X10^6/uL (4.7-6.0) L 08/17/18 05:18 Hgb 14.7 g/dL (13.5-18.0) 08/17/18 05:18 Hct 42.2 % (42.0-54.0) 08/17/18 05:18 MCV 96.8 fL (80.0-100.0) 08/17/18 05:18 MCH 33.7 pg (27.0-34.0) 08/17/18 05:18 MCHC 34.9 g/dL (33.0-35.0) 08/17/18 05:18 RDW 16.7 % (11.6-16.5) H 08/17/18 05:18 Plt Count 123 X10^3/uL (150.0-450.0) L 08/17/18 05:18 MPV 7.8 fL (7.4-11.0) 08/17/18 05:18 Neut % (Auto) 57.4 % (42.0-75.0) 08/17/18 05:18 Lymph % (Auto) 28.1 % (21.0-51.0) 08/17/18 05:18 [place] % (Auto) 12.8 % (0.0-13.0) 08/17/18 05:18 Eos % (Auto) 1.2 % (0.9-2.9) 08/17/18 05:18 Baso % (Auto) 0.5 % (0.2-1.0) 08/17/18 05:18 Neut # (Auto) 2.5 x10^3/uL (2.2-4.8) 08/17/18 05:18 Lymph # (Auto) 1.2 X10^3/uL (1.3-2.9) L 08/17/18 05:18 [place] # (Auto) 0.6 x10^3/uL (0.3-0.8) 08/17/18 05:18 Eos # (Auto) 0.1 x10^3/uL (0.0-0.2) 08/17/18 05:18 Baso # (Auto) 0.0 X10^3/uL (0.0-0.1) 08/17/18 05:18 Absolute Nucleated RBC 0.1 /100WBC 08/17/18 05:18 D-Dimer 453 ng/mL (0-400) H* 08/15/18 10:50 Sodium 140 mmol/L (136-145) 08/17/18 05:18 Corrected Sodium TNP 08/17/18 05:18 Potassium 4.0 mmol/L (3.5-5.1) 08/17/18 05:18 Chloride 104 mmol/L (98-107) 08/17/18 05:18 Carbon Dioxide 26.3 mmol/L (21-32) 08/17/18 05:18 BUN 8 mg/dL (7-18) 08/17/18 05:18 Creatinine 1.00 mg/dL (0.70-1.30) 08/17/18 05:18 Est GFR (MDRD) Af Amer > 60 (>60) 08/17/18 05:18 Est GFR (MDRD) Non-Af > 60 (>60) 08/17/18 05:18 Glucose 107 mg/dL (65-99) H 08/17/18 05:18 Lactic Acid 1.4 mmol/L (0.4-2.0) 08/15/18 11:50 Calcium 9.3 mg/dL (8.5-10.1) 08/17/18 05:18 Corrected Calcium 9.9 mg/dL (8.5-10.1) 08/17/18 05:18 Total Bilirubin 0.60 mg/dL (0.2-1.0) 08/17/18 05:18 AST 30 Units/L (15-37) 08/17/18 05:18 ALT 41 Units/L (12-78) 08/17/18 05:18 Alkaline Phosphatase 89 Units/L (46-116) 08/17/18 05:18 C-Reactive Protein 62.60 mg/L (0-3.0) H 08/15/18 10:50 Total Protein 7.3 g/dL (6.4-8.2) 08/17/18 05:18 Albumin 3.2 g/dL (3.4-5.0) L 08/17/18 05:18 Globulin 4.1 g/dL (2.5-4.5) 08/17/18 05:18 Albumin/Globulin Ratio 0.8 Ratio (1.1-2.1) L 08/17/18 05:18 Influenza Type A (PCR) Negative (NEGATIVE) 08/15/18 11:13 Influenza Type B (PCR) Negative (NEGATIVE) 08/15/18 11:13 - Plan (1) Multifocal pneumonia Status: Acute Plan: PNEUMONIA PROTOCOL. CTA OF CHEST OBTAINED IN ER. CONTINUE RESP THERAPY, IV ATBX, SUPPLEMENTAL O2. ENCOURAGE ORAL HYDRATION. VERIFY HOME MEDICATION, PAIN CONTROL, ENCOURAGE SPUTUM PRODUCTION, FALL RISK
[2018-08-18] MEDS: MAALOX or MYLANTA PO PRN (01:11)
[2018-08-18] MEDS: XOPENEX 1.25 MG/3 ML NEBULE NEB SCH ×5 (01:16→18:52)
[2018-08-18] MEDS: TORADOL 30 MG VIAL IVP SCH ×4 (03:47→21:51)
[2018-08-18 06:24] LABS: BASOPHILS % (AUTO) 0.2 % (0.2-1.0); EOSINOPHILS # (AUTO) 0.1 x10^3/uL (0.0-0.2); EOSINOPHILS % (AUTO) 1.3 % (0.9-2.9); HEMATOCRIT 41.3 % (42.0-54.0); HEMOGLOBIN 14.3 g/dL (13.5-18.0); LYMPHOCYTES # (AUTO) 0.8 X10^3/uL (1.3-2.9); LYMPHOCYTES % (AUTO) 16.3 % (21.0-51.0); MEAN CORPUSCULAR HGB CONC 34.7 g/dL (33.0-35.0); MEAN CORPUSCULAR VOLUME 98.1 fL (80.0-100.0); MEAN PLATELET VOLUME 7.5 fL (7.4-11.0); MONOCYTES # (AUTO) 0.5 x10^3/uL (0.3-0.8); MONOCYTES % (AUTO) 10.8 % (0.0-13.0); NEUTROPHILS # (AUTO) 3.5 x10^3/uL (2.2-4.8); NEUTROPHILS % (AUTO) 71.4 % (42.0-75.0); PLATELET COUNT 154 X10^3/uL (150.0-450.0); RED BLOOD COUNT 4.21 X10^6/uL (4.7-6.0); RED CELL DISTRIBUTION WIDTH 16.3 % (11.6-16.5); WHITE BLOOD COUNT 4.9 X10^3/uL (3.6-10.0)
[2018-08-18 06:42] LABS: ALANINE AMINOTRANSFERASE 38 Units/L (12-78); ALBUMIN 3.3 g/dL (3.4-5.0); ALKALINE PHOSPHATASE 86 Units/L (46-116); ASPARTATE AMINO TRANSFERASE 23 Units/L (15-37); BLOOD UREA NITROGEN 9 mg/dL (7-18); CALCIUM 9.1 mg/dL (8.5-10.1); CARBON DIOXIDE 26.1 mmol/L (21-32); CHLORIDE 104 mmol/L (98-107); COR CA(FOR HYPOALB) 9.7 mg/dL (8.5-10.1); CREATININE 0.91 mg/dL (0.70-1.30); SODIUM 140 mmol/L (136-145); TOTAL PROTEIN 7.3 g/dL (6.4-8.2); eGFR NON BLACK RACES > 60 (>60)
--- NOTE | 2018-08-18 06:48 | RAD ---
HISTORY: Shortness of breath Study: Chest AP portable Comparison: 08/17/2018 Findings: There is a thoracic aortic stent graft present. The heart is within normal limits in size. No congestive heart failure is noted. The lungs are mildly hypo inflated. Slight residual increased infiltrate is present in the right lung base. The remainder of the lung garza are clear. Old healed rib fractures are present on the left as is an open the reduced internally fixed left clavicular fracture. IMPRESSION: Some recurrent right basilar lung infiltrate is now present No other changes when compared with the prior examination Reported By:
[2018-08-18] MEDS ORDERED: POTASSIUM CHL 40 MEQ/NS 0.45% 500 ML IV PRN (07:02)
[2018-08-18] MEDS ORDERED: KLOR-CON PO PRN (07:02)
[2018-08-18] MEDS ORDERED: K-RIDER 10 MEQ/NS 100 ML 10 MEQ/100 ML BAG IV PRN (07:02)
[2018-08-18] MEDS ORDERED: K-DUR TAB 20 MEQ PO PRN (07:02)
[2018-08-18] MEDS ORDERED: POTASSIUM CHL 60 MEQ/NS 0.45% 500 ML IV PRN (07:02)
[2018-08-18] MEDS ORDERED: POTASSIUM CHLORIDE LIQ 20 MEQ UDC PO PRN (07:02)
[2018-08-18] MEDS: LEVAQUIN PREMIX IV 750 MG 750 MG/150 ML BAG IV SCH (09:08)
[2018-08-18] MEDS: ROBITUSSIN DM PO SCH ×4 (09:08→21:25)
[2018-08-18] MEDS: PHENERGAN INJ 25 MG IV PRN (09:12)
[2018-08-18] MEDS: MICRO K EXTEN CAP 10 MEQ PO PRN (09:13)
[2018-08-18 10:06] LABS: CRYPTOSPORIDIUM PARVUM ANTIGEN NEGATIVE (NEGATIVE); GIARDIA LAMBLIA ANTIGEN NEGATIVE (NEGATIVE); STOOL FOR WBC POSITIVE (NEGATIVE)
[2018-08-18] MEDS ORDERED: NS 1/2 1000 ML IV 1,000 ML IV ONE (11:04)
[2018-08-18] MEDS: NS 1/2 1000 ML IV 1,000 ML IV SCH (11:05)
[2018-08-18] MEDS: MAGNESIUM SULFATE 1 GRAM/100 mL PREMIX 1 GM/100 ML BAG IV PRN ×2 (11:05→13:30)
[2018-08-18] MEDS: BENTYL CAP 10 MG PO SCH ×4 (11:05→21:25)
[2018-08-18] MEDS: INDERAL TAB 10 MG PO SCH (16:59)
[2018-08-18] MEDS: NORVASC TAB 10 MG PO SCH (16:59)
[2018-08-18] MEDS: ZyrTEC TAB 10 MG PO SCH (16:59)
[2018-08-18] MEDS: MILK THISTLE 1000 MG PO SCH (17:00)
[2018-08-18] MEDS: BLACK CHERRY EXTRACT PO SCH (17:00)
[2018-08-18] MEDS: PREVACID PO SCH (17:00)
[2018-08-18] MEDS: LOVAZA PO SCH (17:01)
--- NOTE | 2018-08-18 19:16 | PCM.PROG ---
Progress Note - Progress Note for Day of Date of Exam: 08/18/18 - Subjective Subjective: WAS ADMITTED FOR LOWER LOBE PNEUMONIA. TODAY, HE IS ALERT AND ORIENTED, LYING IN BED ON MORNING ROUNDS. HE CONTINUES WITH COMPLAINTS OF COUGH, SHORTNESS OF BREATH, AND RIB PAIN. HE ALSO REPORTS ABDOMINAL PAIN AND DIARRHEA TODAY. ON EXAMINATION, HEART IS REGULAR IN RATE AND RHYTHM. BILATERAL LUNGS ARE NOTED WITH SCATTERED WHEEZING. ABDOMEN IS ROUND, SOFT, AND NOTED WITH DIFFUSE TENDERNESS TO PALPATION. HIS VITALS THIS MORNING ARE 98.7-79-20-96%-121/66. LABS WERE OBTAINED. ABNORMAL LAB VALUES INCLUDE THE FOLLOWING: RBC 4.21, HCT 41.3, GLUCOSE 104, ALBUMIN 3.3. BLOOD CULTURES PENDING. A CHEST XRAY WAS OBTAINED THIS MORNING AND REVEALED: Some recurrent right basilar lung infiltrate is now present. No other changes when compared with the prior examination. HE IS CURRENTLY RECEIVING IV LEVAQUIN, RESPIRATORY TX, SUPPEMENTAL OXYGEN, AND HOME MEDICATIONS WERE RESUMED. TODAY, WE WILL OBTAIN STOOL STUDIES AND START BENTYL 20MG PO QID. OTHERWISE, WE WILL FOLLOW UP WITH AM LABS AND CHEST XRAY AND CONTINUE TO MONITOR. - Past Medical Family Social History Past Med/Fam/Surg Hx: No changes since H&P Allergies: Allergies escitalopram [From Lexapro] Allergy (Verified 04/30/18 12:52) antidepressants Allergy (Uncoded 07/22/16 18:32) - Review of Systems ROS: No change since H&P - Vital Signs and I&O's Vital Signs: Temperature 99.6 F Pulse Rate [Left Brachial] 96 Pulse Rate [Right Brachial] 90 Pulse Rate [Bilateral Brachial 89 ] Pulse Rate 98 Respiratory Rate 18 Blood Pressure [Left Arm] 145/66 Blood Pressure [Right Arm] 134/67 Blood Pressure 130/74 O2 Sat by Pulse Oximetry 97 Intake and Output: Intake & Output 08/16/18 08/17/18 08/18/18 08/19/18 11:59 11:59 11:59 11:59 Intake Total 2325 / 2325 3760 / 3760 2895 / 2895 3341 / 3341 Output Total 900 / 900 400 / 400 Balance 1425 / 1425 3360 / 3360 2895 / 2895 3341 / 3341 - Physical Exam Oriented: Normal Eyes: Normal Ear: Normal Nose: Normal Throat: Normal Respiratory: Diminished, Wheezes Cardiovascular: Normal : Normal Auscultation: Bowel Sounds: Normal Palpation: Normal Tenderness: Normal Skin: Bruising (TO NASAL BRIDGE) Musculoskeletal: Normal Psychiatric: Anxiety Mood Description: Calm Affect: Anxious Speech Pattern: Clear, Appropriate - Laboratory and Diagnostics Result Diagrams: 08/18/18 05:33 08/18/18 05:33 Labs: 08/18/18 08:44 Stool - Final 08/15/18 11:40 Blood Blood Culture - Preliminary 08/15/18 11:19 Blood Blood Culture - Preliminary Laboratory WBC 4.9 X10^3/uL (3.6-10.0) 08/18/18 05:33 RBC 4.21 X10^6/uL (4.7-6.0) L 08/18/18 05:33 Hgb 14.3 g/dL (13.5-18.0) 08/18/18 05:33 Hct 41.3 % (42.0-54.0) L 08/18/18 05:33 MCV 98.1 fL (80.0-100.0) 08/18/18 05:33 MCH 34.0 pg (27.0-34.0) 08/18/18 05:33 MCHC 34.7 g/dL (33.0-35.0) 08/18/18 05:33 RDW 16.3 % (11.6-16.5) 08/18/18 05:33 Plt Count 154 X10^3/uL (150.0-450.0) 08/18/18 05:33 MPV 7.5 fL (7.4-11.0) 08/18/18 05:33 Neut % (Auto) 71.4 % (42.0-75.0) 08/18/18 05:33 Lymph % (Auto) 16.3 % (21.0-51.0) L 08/18/18 05:33 [place] % (Auto) 10.8 % (0.0-13.0) 08/18/18 05:33 Eos % (Auto) 1.3 % (0.9-2.9) 08/18/18 05:33 Baso % (Auto) 0.2 % (0.2-1.0) 08/18/18 05:33 Neut # (Auto) 3.5 x10^3/uL (2.2-4.8) 08/18/18 05:33 Lymph # (Auto) 0.8 X10^3/uL (1.3-2.9) L 08/18/18 05:33 [place] # (Auto) 0.5 x10^3/uL (0.3-0.8) 08/18/18 05:33 Eos # (Auto) 0.1 x10^3/uL (0.0-0.2) 08/18/18 05:33 Baso # (Auto) 0.0 X10^3/uL (0.0-0.1) 08/18/18 05:33 Absolute Nucleated RBC 0.1 /100WBC 08/18/18 05:33 D-Dimer 453 ng/mL (0-400) H* 08/15/18 10:50 Sodium 140 mmol/L (136-145) 08/18/18 05:33 Corrected Sodium TNP 08/18/18 05:33 Potassium 3.5 mmol/L (3.5-5.1) 08/18/18 05:33 Chloride 104 mmol/L (98-107) 08/18/18 05:33 Carbon Dioxide 26.1 mmol/L (21-32) 08/18/18 05:33 BUN 9 mg/dL (7-18) 08/18/18 05:33 Creatinine 0.91 mg/dL (0.70-1.30) 08/18/18 05:33 Est GFR (MDRD) Af Amer > 60 (>60) 08/18/18 05:33 Est GFR (MDRD) Non-Af > 60 (>60) 08/18/18 05:33 Glucose 104 mg/dL (65-99) H 08/18/18 05:33 Lactic Acid 1.4 mmol/L (0.4-2.0) 08/15/18 11:50 Calcium 9.1 mg/dL (8.5-10.1) 08/18/18 05:33 Corrected Calcium 9.7 mg/dL (8.5-10.1) 08/18/18 05:33 Magnesium 1.8 mg/dL (1.7-2.9) 08/18/18 05:33 Total Bilirubin 0.70 mg/dL (0.2-1.0) 08/18/18 05:33 AST 23 Units/L (15-37) 08/18/18 05:33 ALT 38 Units/L (12-78) 08/18/18 05:33 Alkaline Phosphatase 86 Units/L (46-116) 08/18/18 05:33 C-Reactive Protein 62.60 mg/L (0-3.0) H 08/15/18 10:50 Total Protein 7.3 g/dL (6.4-8.2) 08/18/18 05:33 Albumin 3.3 g/dL (3.4-5.0) L 08/18/18 05:33 Globulin 4.0 g/dL (2.5-4.5) 08/18/18 05:33 Albumin/Globulin Ratio 0.8 Ratio (1.1-2.1) L 08/18/18 05:33 Stool Description 50 g formed brn stoo 08/18/18 08:44 Stl Occult Blood (IFOB) Negative (NEGATIVE) 08/18/18 08:44 Stool for White Cells Positive (NEGATIVE) A 08/18/18 08:44 Stl C. diff Tox B Gene Negative (NEGATIVE) 08/18/18 08:44 Stl C. diff [id number] Negative (NEGATIVE) 08/18/18 08:44 Cryptosporid parvum Ag Negative (NEGATIVE) 08/18/18 08:44 Giardia lamblia Ag Negative (NEGATIVE) 08/18/18 08:44 Influenza Type A (PCR) Negative (NEGATIVE) 08/15/18 11:13 Influenza Type B (PCR) Negative (NEGATIVE) 08/15/18 11:13 - Plan (1) Multifocal pneumonia Status: Acute Plan: PNEUMONIA PROTOCOL. CONTINUE RESP THERAPY, IV ATBX, SUPPLEMENTAL O2. ENCOURAGE ORAL HYDRATION. VERIFY HOME MEDICATION, PAIN CONTROL, ENCOURAGE SPUTUM PRODUCTION, FALL RISK (2) Diarrhea Status: Acute Qualifiers: Diarrhea type: unspecified type Qualified Code(s): R19.7 - Diarrhea, unspecified Plan: STOOL STUDIES, CONTINUE TO MONITOR (3) Abdominal pain Status: Acute Qualifiers: Abdominal location: generalized Qualified Code(s): R10.84 - Generalized abdominal pain Plan: OBTAIN STOOL STUDIES, BENTYL 20MG PO QID, CONTINUE TO MONITOR
[2018-08-18] MEDS: ROXICODONE TAB 5 MG PO PRN ×2 (21:24→21:26)
[2018-08-18] MEDS: PERCOCET TAB 5/325 MG PO PRN (21:26)
[2018-08-19] MEDS: XOPENEX 1.25 MG/3 ML NEBULE NEB SCH ×2 (00:40→05:00)
[2018-08-19] MEDS: NS 1/2 1000 ML IV 1,000 ML IV SCH (02:00)
[2018-08-19] MEDS ORDERED: NS 1/2 1000 ML IV 1,000 ML IV ONE (03:12)
[2018-08-19] MEDS: TORADOL 30 MG VIAL IVP SCH ×2 (05:15→10:13)
[2018-08-19 06:17] LABS: BASOPHILS % (AUTO) 0.7 % (0.2-1.0); EOSINOPHILS # (AUTO) 0.1 x10^3/uL (0.0-0.2); EOSINOPHILS % (AUTO) 3.9 % (0.9-2.9); HEMATOCRIT 40.2 % (42.0-54.0); HEMOGLOBIN 13.8 g/dL (13.5-18.0); LYMPHOCYTES # (AUTO) 1.1 X10^3/uL (1.3-2.9); LYMPHOCYTES % (AUTO) 32.3 % (21.0-51.0); MEAN CORPUSCULAR HEMOGLOBIN 33.8 pg (27.0-34.0); MEAN CORPUSCULAR HGB CONC 34.3 g/dL (33.0-35.0); MEAN CORPUSCULAR VOLUME 98.6 fL (80.0-100.0); MEAN PLATELET VOLUME 7.3 fL (7.4-11.0); MONOCYTES # (AUTO) 0.5 x10^3/uL (0.3-0.8); MONOCYTES % (AUTO) 15.5 % (0.0-13.0); NEUTROPHILS # (AUTO) 1.7 x10^3/uL (2.2-4.8); NEUTROPHILS % (AUTO) 47.6 % (42.0-75.0); PLATELET COUNT 151 X10^3/uL (150.0-450.0); RED BLOOD COUNT 4.07 X10^6/uL (4.7-6.0); RED CELL DISTRIBUTION WIDTH 16.1 % (11.6-16.5); WHITE BLOOD COUNT 3.5 X10^3/uL (3.6-10.0)
[2018-08-19 06:27] LABS: ALANINE AMINOTRANSFERASE 34 Units/L (12-78); ALKALINE PHOSPHATASE 77 Units/L (46-116); ASPARTATE AMINO TRANSFERASE 20 Units/L (15-37); BLOOD UREA NITROGEN 7 mg/dL (7-18); CARBON DIOXIDE 26.3 mmol/L (21-32); CHLORIDE 104 mmol/L (98-107); COR CA(FOR HYPOALB) 9.8 mg/dL (8.5-10.1); CREATININE 0.94 mg/dL (0.70-1.30); SODIUM 139 mmol/L (136-145); TOTAL PROTEIN 6.9 g/dL (6.4-8.2); eGFR NON BLACK RACES > 60 (>60)
--- NOTE | 2018-08-19 07:03 | RAD ---
HISTORY: Shortness of breath Study: Chest AP portable Comparison: 08/18/2018 Findings: There is thoracic aortic stent graft present. The heart is within normal limits in size. The cyndie are normal. The lungs are mildly hypo inflated . Right basilar infiltrate is unchanged. The remainder of the lung garza are clear. Old healed rib fractures and an old open the reduced internally fixed left clavicular fracture again identified. IMPRESSION: Small residual right basilar lung infiltrate No other changes when compared to the prior examination Reported By:
[2018-08-19] MEDS: MICRO K EXTEN CAP 10 MEQ PO PRN (08:28)
[2018-08-19] MEDS: LEVAQUIN PREMIX IV 750 MG 750 MG/150 ML BAG IV SCH (08:28)
[2018-08-19] MEDS: BENTYL CAP 10 MG PO SCH (08:28)
[2018-08-19] MEDS: ROBITUSSIN DM PO SCH (08:28)
[2018-08-19] MEDS: PHENERGAN INJ 25 MG IV PRN (08:34)
[2018-08-19 10:11] VITALS: BP 126/59
== END 2018-08-19 11:45 | disposition home or self-care (01) ==
LOC: MED/SURG 08:55 → ER 08:55 → OBSVTOIN 12:05 → INTOOBSV 12:05 → MED/SURG 15:04
PROVIDERS: ADMIT Internal Medicine; ATTEND Internal Medicine
DX: R29.6 Repeated falls; J18.8 Other pneumonia, unspecified organism; F41.8 Other specified anxiety disorders; R19.7 Diarrhea, unspecified; K21.9 Gastro-esophageal reflux disease without esophagitis; I10 Essential (primary) hypertension; R06.02 Shortness of breath; E11.65 Type 2 diabetes mellitus with hyperglycemia; R07.81 Pleurodynia; R74.8 Abnormal levels of other serum enzymes; R79.82 Elevated C-reactive protein (CRP)
CPT/HCPCS: 36415; 71010; 71045; 71275; 80053; 82270; 83605; 83630; 83735; 85025; 85378; 86140; 87040; 87045; 87070; 87205; 87328; 87329; 87427; 87449; 87493; 87502; 87899; 94640; 94760; 96365; 96367; 96374; 97161; 99218; 99283; 99284; A4222; G0378; J1885; J1956; J2550; J3475; J3490; J7050; J7620